=== PATIENT | male | born 1960 | race Hispanic/Latino ===

== ENCOUNTER 2019-10-15 13:40 | Emergency (ER) | payer BC, OTHER ==
[~2019-10-15] VITALS: Ht 170.2 cm; Wt 89.8 kg
[~2019-10-15 13:40] MED LIST: CILOSTAZOL100 MG PO; LANTUS 3ML100 UNITS/ SQ; VALACYCLOVIR500 MG PO
[2019-10-15 14:36] LABS: INFLUENZAE A&B ANTIGEN (RAPID) NEGATIVE (NEGATIVE)
[2019-10-15 14:41] LABS: STREPTOCOCCUS GRP A ANTIGEN NEGATIVE (NEGATIVE)
[2019-10-15 16:07] VITALS: BP 140/97
== END 2019-10-15 15:02 | disposition home or self-care (01) ==
LOC: ER 13:40
DX: R05 Cough (principal); J02.9 Acute pharyngitis, unspecified; S13.4XXA Sprain of ligaments of cervical spine, initial encounter; I10 Essential (primary) hypertension; E11.9 Type 2 diabetes mellitus without complications; E78.5 Hyperlipidemia, unspecified; Z86.73 Personal history of transient ischemic attack (TIA), and cerebral infarction without residual deficits
CPT/HCPCS: 83518; 87070; 87400; 93005; 99283

== ENCOUNTER 2020-05-03 13:09 | Inpatient (IN) | payer BC, OTHER ==
[~2020-05-03] VITALS: Ht 170.2 cm; Wt 85.8 kg
[2020-05-03] MEDS ORDERED: MORPHINE SULFATE 2 MG/ML SYR 1ML IV STA (13:43)
[2020-05-03] MEDS ORDERED: SODIUM CHLORIDE 0.9% 1000ML 1,000 ML IV STA (13:43)
[2020-05-03] MEDS ORDERED: ONDANSETRON HCL INJ 2MG/ML 2ML 2 MG/ML VIAL IV STA (13:43)
[2020-05-03] MEDS ORDERED: VANCOMYCIN 1GM/NS 250 ML 250 ML IV ONE (13:45)
--- OUTSIDE RECORDS SUMMARY | 2020-05-03 13:50 | XMS REPORT | Continuity of Care Document ---
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 Name Role Phone NONSTAFF PCP Unavailable Ben Barriga DO Attphys Bi SCHULERNStacey Attphys Unavailable Arnulfo Mackey RN Attphys Unavailable Payers Payer Name Policy Type Policy Number Effective Date Expiration Date S hoang [facility] CHO[facility]/CHOICE +/08/2019-PresentHMO/ PPO xxxxxxxxx 2019 00:00:00 Abraham Eduardo [facility] P[facility] [id number] 2006 00:00:00 [facility] Problems Condition Name Condition Details Condition Category Status Onset Date Resolution Date Last Treatment Date Treating Clinician Comments Source Chest pain Chest pain Disease Active 2020-01-11 00:00:00 Abraham Eduardo Essential hypertension Essential hypertension Disease Active 2020-01-11 00:00:[address] Acute pain of left shoulder Acute pain of left shoulder Disease Active 2020-01-11 00:00:00 Abraham Eduardo 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 Disease Active 2020-01-11 00:00:00 Abraham Eduardo Nocturnal leg cramps Nocturnal leg cramps Disease Active 00:00:00 Abraham Eduardo Myositis of lower extremity Myositis of lower extremity Disease Active 2019-03-19 00:00:00 Abraham Eduardo Neck pain, acute Neck pain, acute Disease Active 2018-09-08 00:00:00 Abraham Eduardo Acute nonintractable headache Acute nonintractable headache Disease Active 2018-09-08 00:00:00 Abraham Eduardo Other specified abdominal hernia without obstruction o r gangrene Other specified abdominal hernia without obstruction or gangrene Disease Active 2017-06-11 00:00:00 Abraham celeste Gait disturbance Gait disturbance Disease Active 2017-02-25 00:00:00 Abraham Eduardo Cerebrovascular accident (CVA) due to embolism of cere bral artery Cerebrovascular accident (CVA) due to embolism of cerebral artery Disease Active 2017-02-25 00:00:00 [place] [employer] Right lower quadrant abdominal tenderness without rebo und tenderness Right lower quadrant abdominal tenderness without rebound tenderness Disease Act will 2016-09-28 00:00:00 Abraham Eduardo Nutritional counseling Nutritional counseling Disease Active 2016-09-12 00:00:00 Abraham celeste Type 2 diabetes mellitus with hyperglyce adalgisa, without long-term current use of insulin Type 2 diabetes mellitus with hyperglyce adalgisa, without long-term current use of insulin Disease Active 2016-09-06 00:00:00 Abraham Eduardo Right lower quadrant abdominal pain Right lower quadrant abdomin al pain Disease Active 2016-09-03 00:00:00 [place] [employer] Melena Melena Disease Active 2016-09-03 00:00:00 Abraham Eduardo Alcohol abuse Alcohol abuse Disease Active 2016-09-03 00:00:00 Abraham Eduardo Abdominal pain Abdominal pain Problem Active [facility] Cerebrovascular accident (CVA) CVA (cerebral vascular accident) Pro blem Active [facility] Steatosis of liver Fatty liver Problem Active [facility] Microscopic hematuria Microscopic hematuria Problem Active [facility] Allergies, Adverse Reactions, Alerts Allergy Name Allergy Type Status Severity Reaction(s) Onset Date Inacti ve Date Treating Clinician Comments Source Penicillin Allergy to Substance Active 2016-11-11 00:00:00 [facility] Penicillins Propensity to adverse reactions to drug Active Anaphylaxis 2016-09-02 00:00:00 Abraham cardona Family History Family Member Diagnosis Comments Start Date Stop Date Source Natural father Diabetes Rosario [facility]odist Natural father Heart disease Abraham Eduardo Natural father Hyperlipidemia [place] [employer] Natural father Hypertension Abraham Eduardo Maternal grandfather Diabetes [place] [employer] Maternal grandfather Heart disease [place] [employer] Maternal grandfather Stroke [place] [employer] Maternal grandmother Diabetes [place] [employer] Paternal grandmother Heart disease [place] [employer] Social History Social Habit Start Date Stop Date Quantity Comments Source Sex Assigned At Jose Roberto ortiz [employer] Alcohol intake 2020-01-11 00:00:00 2020-01-11 00:00:00 Current drinker of alcohol (finding) Abraham Eduardo History SDOH Physical Activity DPW 2020-01-11 00:00:00 2020-01-11 00: 00:00 0 Abraham Eduardo History SDOH Physical Activity MPS 2020-01-11 00:00:00 2020-01-11 00: 00:00 0 Abraham Eduardo History SDOH Stress 2020-01-11 00:00:00 2020-01-11 00:00:00 1 Abraham Eduardo Alcohol Comment 2016-09-02 00:00:00 2016-09-02 00:00:00 6pack of beer daily Abraham Eduardo Smoking Status Start Date Stop Date Source Never smoker Abraham Healy t Medications Ordered Medication Name Filled Medication Name Start Date Stop Da te Current Medication? Ordering Clinician Indication Dosage Frequency Signature (SIG) Comments Components Source pen needle, diabetic (BD Ultra-Fine Short Pen Needle) 31 gau ge x 5/16" needle 2020-01-07 00:00:00 Yes 1{each} QD 1 each daily. Dx. : E11.8 Abraham Eduardo insulin degludec (Tresiba FlexTouch U-200) 200 unit/mL (3 mL ) insulin pen 2020-01-04 00:00:00 2020-02-03 23:59:00 No 20U QD Inject 20 Units under the skin nightly for 30 days. Abraham Santiago ist flash glucose scanning reader (FreeStyle Benito 14 Day [place] ) misc 2020-01-04 00:00:00 2020-01-18 23:59:00 No 1{device} 1 Device continuously for 14 days. Abraham Eduardo flash glucose sensor (FreeStyle Benito 14 Day Sensor) kit 2020-01-04 00:00:00 2020-01-18 23:59:00 No 1{device} 1 Device continuou sly for 14 days. Abraham Eduardo metFORMIN (GLUCOPHAGE) 500 mg tablet 2019-12-30 00:00:00 Ye s 500mg Q.5D Take 1 tablet (500 mg total) by mouth 2 (two) times a day with meals. Abraham Eduardo clopidogreL (PLAVIX) 75 mg tablet 2019-12-30 00:00:00 Yes 75mg QD Take 1 tablet (75 mg total) by mouth daily. Jose Roberto Eduardo gabapentin (NEURONTIN) 300 mg capsule 2019-12-30 00:00:00 Yes 600mg Q.[id number] Take 2 capsules (600 mg total) by mouth 3 (three) times a day. Abraham Eduardo losartan (COZAAR) 50 MG tablet 2019-12-30 00:00:00 Yes 50mg QD Take 1 tablet (50 mg total) by mouth daily. Jose Roberto Eduardo sertraline (ZOLOFT) 50 MG tablet 2019-12-30 00:00:00 Yes 50mg QD Take 1 tablet (50 mg total) by mouth daily. Jose Roberto Eduardo simvastatin (ZOCOR) 40 MG tablet 2019-12-30 00:00:00 Yes 40mg QD Take 1 tablet (40 mg total) by mouth nightly. H ramone Eduardo traZODone (DESYREL) 50 MG tablet 2019-12-30 00:00:00 Yes 50mg QD Take 1 tablet (50 mg total) by mouth nightly. H ramone Eduardo traZODone (DESYREL) 50 MG tablet 2019-11-30 00:00:00 2019-12 00:00:00 No TAKE 1 TABLET BY MOUTH NIGHTLY Abraham Eduardo gabapentin (NEURONTIN) 300 mg capsule 2019-11-24 00:00:00 Y es TAKE 2 CAPSULES(600 MG) BY MOUTH THREE TIMES DAILY Abraham Eduardo gabapentin (NEURONTIN) 300 mg capsule 2019-11-24 00:00:00 Yes TID Abraham Eduardo gabapentin (NEURONTIN) 300 mg capsule 2019-11-24 00:00 :00 2019-12-30 00:00:00 No TAKE 2 CAPSULES(600 MG) BY MOUTH THREE T IMES DAILY Abraham Eduardo gabapentin (NEURONTIN) 300 mg capsule 2019-10-22 00:00 :00 2019-11-24 00:00:00 No TAKE 2 CAPSULES(600 MG) BY MOUTH THREE T IMES DAILY Abraham Eduardo losartan (COZAAR) 50 MG tablet 2019-09-22 00:00:00 2019-12-30 00 :00:00 No TAKE 1 TABLET BY MOUTH ONCE DAILY Abraham Eduardo simvastatin (ZOCOR) 40 MG tablet 2019-09-22 00:00:00 2019-12 00:00:00 No TAKE 1 TABLET(40 MG) BY MOUTH EVERY NIGHT Abraham Eduardo sertraline (ZOLOFT) 50 MG tablet 2019-09-22 00:00:00 2019-12 00:00:00 No TAKE 1 TABLET(50 MG) BY MOUTH DAILY Abraham Eduardo clopidogreL (PLAVIX) 75 mg tablet 2019-09-22 00:00:00 2019 00:00:00 No TAKE 1 TABLET(75 MG) BY MOUTH DAILY Abraham Eduardo gabapentin (NEURONTIN) 300 mg capsule 2019-09-22 00:00 :00 2019-10-22 00:00:00 No TAKE 2 CAPSULES(600 MG) BY MOUTH THREE T IMES DAILY Abraham Eduardo gabapentin (NEURONTIN) 300 mg capsule 2019-08-24 00:00 :00 2019-09-22 00:00:00 No TAKE 2 CAPSULES(600 MG) BY MOUTH THREE T IMES DAILY Abraham Eduardo traZODone (DESYREL) 50 MG tablet 2019-08-04 00:00:00 2019-11 00:00:00 No TAKE 1 TABLET BY MOUTH NIGHTLY Abraham Eduardo gabapentin (NEURONTIN) 300 mg capsule 2019-07-31 00:00 :00 2019-08-24 00:00:00 No TAKE 2 CAPSULES(600 MG) BY MOUTH THREE T IMES DAILY Abraham Eduardo gabapentin (NEURONTIN) 300 mg capsule 2019-07-01 00:00 :00 2019-07-30 00:00:00 No TAKE 2 CAPSULES(600 MG) BY MOUTH THREE T IMES DAILY Abraham Eduardo traZODone (DESYREL) 50 MG tablet 2019-06-29 00:00:00 2019-07 00:00:00 No TAKE 1 TABLET BY MOUTH NIGHTLY Abraham Eduardo gabapentin (NEURONTIN) 300 mg capsule 2019-06-01 00:00 :00 2019-07-01 00:00:00 No TAKE 2 CAPSULES(600 MG) BY MOUTH THREE T IMES DAILY Abraham Eduardo gabapentin (NEURONTIN) 300 mg capsule 2019-04-29 00:00 :00 2019-05-31 00:00:00 No TAKE 2 CAPSULES(600 MG) BY MOUTH THREE T IMES DAILY Abraham Eduardo gabapentin (NEURONTIN) 300 mg capsule 2019-03-19 00:00 :00 2019-11-24 00:00:00 No TID Abraham Healy t losartan (COZAAR) 50 MG tablet 2019-03-19 00:00:00 2019-09-22 00 :00:00 No 50mg QD Take 1 tablet (50 mg total) by mouth daily. Abraham Eduardo sertraline (ZOLOFT) 50 MG tablet 2019-03-19 00:00:00 2019-08 00:00:00 No TAKE 1 TABLET(50 MG) BY MOUTH DAILY Abraham Eduardo clopidogrel (PLAVIX) 75 mg tablet 2019-03-19 00:00:00 2019 00:00:00 No TAKE 1 TABLET(75 MG) BY MOUTH DAILY Abraham Eduardo simvastatin (ZOCOR) 40 MG tablet 2019-03-19 00:00:00 2019-08 00:00:00 No 40mg QD Take 1 tablet (40 mg total) by mouth nightly. Abraham Eduardo traZODone (DESYREL) 50 MG tablet 2019-01-02 00:00:00 2019-06 00:00:00 No TAKE 1 TABLET BY MOUTH NIGHTLY Abraham Eduardo tiZANidine (ZANAFLEX) 4 MG tablet 2018-09-08 00:00:00 Yes TAKE 1 TABLET(4 MG) BY MOUTH EVERY 8 HOURS NEEDED FOR MUSCLE SPASMS Abraham Eduardo naproxen (EC-NAPROSYN) 500 MG EC tablet 00:00:00 2019-09-08 23:59:00 No 500mg Q.5D Take 1 tablet (500 mg total) by mouth 2 (two) times a day with meals. Abraham Eduardo canagliflozin (INVOKANA) 100 mg tablet tablet 2018-05-22 00:00:0 0 Yes 100mg QD Take 1 tablet (100 mg total) by mouth daily. Abraham Eduardo senna (SENOKOT) 8.6 mg tablet 2018-05-16 00:00:00 2019-05-16 23: 59:00 No 1{tbl} QD Take 1 tablet by mouth daily. Abraham Eduardo metFORMIN (GLUCOPHAGE) 500 mg tablet 2017-05-30 00:00: 00 2019-12-30 00:00:00 No 500mg Q.5D Take 1 tablet ( 500 mg total) by mouth 2 (two) times a day with meals. Abraham Eduardo lancets (ACCU-CHEK MULTICLIX LANCET) [facility] 2016-09-27 00:00:0 0 Yes Type 2 diabetes mellitus with hyperglycemia, without long-term current use of insulin ([facility]) Test daily before all meals/snacks and once bef ore bedtime. Abraham Eduardo ACCU-CHEK COMPACT TEST strip 2016-09-12 00:00:00 Y es Type 2 diabetes mellitus with hyperglycemia, without long-term current use of insulin ([facility]) Test daily before all meals/snacks and once before bedtime. Abraham Eduardo Insulin Glargine (Lantus 3ML Pen) 100 Units/1 Ml Inj I nsulin Glargine (Lantus 3ML Pen) 100 Units/1 Ml Inj Yes 30 Daily [facility] Cilostazol 100 Mg Tablet, 100 Mg Oral Cilostazol 100 Mg Tablet, 100 Mg Oral 2017-02-11 00:00:00 No 100 Twice A Day [facility] Valacyclovir Hcl (Valacyclovir) 500 Mg Tablet, 1000 Mg Oral Valacyclovir Hcl (Valacyclovir) 500 Mg Tablet, 1000 Mg Oral 2016-11-11 00:00:00 No 1000 Three Times A Day [facility] Vital Signs Vital Name Observation Time Observation Value Comments Source Systolic blood pressure 2020-01-11 11:31:00 160 mm[Hg] Abraham Eduardo Diastolic blood pressure 2020-01-11 11:31:00 85 mm[Hg] Abraham Eduardo Heart rate 2020-01-11 11:31:00 91 /min Abraham Eduardo Body temperature 2020-01-11 11:31:00 36.72 [place]ri[place] [employer] Body height 2020-01-11 11:31:00 170.2 cm Abraham Eduardo Body weight 2020-01-11 11:31:00 87.998 kg Abraham Eduardo BMI 2020-01-11 11:31:00 30.38 kg/m2 Abraham Eduardo Oxygen saturation in Arterial blood by Pulse oximetry 01-10 11:31:00 94 /min Abraham Eduardo Procedures Procedure Date / Time Performed Performing Clinician [facility] HEMOGLOBIN A1C 2019-12-30 15:32:00 Marcia Barriga CBC WITH PLATELET AND DIFFERENTIAL 2019-12-30 15:32:00 Marcia Vaca COMPREHENSIVE METABOLIC PANEL 2019-12-30 15:32:00 Marcia Barriga LIPID PANEL 2019-12-30 15:32:00 Marcia Barriga TESTOSTERONE 2019-12-30 15:32:00 Marcia Barriga Plan of Care Planned Activity Planned Date Details Comments Source Future Scheduled Test 2020-12-29 00:00:00 DIABETIC FOOT EXAM [code = DIABETIC FOOT EXAM] Abraham Eduardo Future Scheduled Test 2020-05-26 00:00:00 INFLUENZA VACCINE [code = INFLUENZA VACCINE] Abraham Eduardo Future Scheduled Test 2019-05-16 00:00:00 URINE MICROALBUMIN [code = URINE MICROALBUMIN] [facility] Future Scheduled Test 2008 00:00:00 COLONOSCOPY SCREEN ING [code = COLONOSCOPY SCREENING] [facility] Future Scheduled Test 2008 00:00:00 SHINGLES VACCINES (#1) [code = SHINGLES VACCINES (#1)] [facility] Future Scheduled Test 1958 00:00:00 DIABETIC RETINAL E YE EXAM [code = DIABETIC RETINAL EYE EXAM] Abraham Eduardo Encounters Start Date/Time End Date/Time Encounter Type Admission Type [facility] Care Department Encounter ID Source 2020-01-11 00:00:00 2020-01-11 00:00:00 Outpatient Nicolás BARRIGA [facility] [id number] Abraham Eduardo 2020-01-04 00:00:00 2020-01-04 00:00:00 Outpatient Nicolás BARRIGA [facility] [id number] Abraham Eduardo 2019-12-30 00:00:00 2019-12-30 00:00:00 Outpatient Nicolás BARRIGA [facility] [id number] Abraham Eduardo 2019-10-15 13:40:00 2019-10-15 15:02:00 Departed Emergency Room [facility] [id number] [facility] Results Test Description Test Time Test Comments Results Result Comments Source Comprehensive metabolic panel 2020-01-01 21:39:00 Test Item Glucose (test code = 2345-7) 463 mg/dL 65-139 H Non-fasting reference interval BUN (test code = 3094-0) 16 mg/dL 7-25 Creatinine (test code = 2160-0) 0.68 mg/dL 0.7-1.25 L For patients >49 years of age, the reference limitfor Creatinine is approximately 13% higher for peopleidentified as -[place]. EGFR Non-Afr. [place]an (test code = 2775) 103 > OR = 60 mL /min/1.73m2 EGFR (test code = 46372-4) 119 > OR = 60 mL/min/1.73m2 BUN/creatinine ratio (test code = 3097-3) 24 6- 22 (calc) H Sodium (test code = 2951-2) 134 mmol/L 135-146 L Potassium (test code = 2823-3) 4.5 mmol/L 3.5-5.3 Chloride (test code = 5-0) 98 mmol/L 98-110 CO2 (test code = 2027-9) 29 mmol/L 20-32 Calcium (test code = 47999-5) 9.3 mg/dL 8.6-10.3 Protein (test code = 2885-2) 6.6 g/dL 6.1-8.1 Albumin, S (test code = 1751-7) 3.8 g/dL 3.6-5.1 Globulin, total (test code = 81527-5) 2.8 1.9- 3.7 g/dL (c alc) Albumin/globulin ratio (test code = 1759-0) 1.4 1.0- 2.5 ( calc) Total bilirubin (test code = 1974-2) 0.7 mg/dL 0.2-1.2 Alkaline phosphatase (test code = 6768-6) 79 U/L 35-144 AST (test code = 1920-8) 12 U/L 10-35 ALT (test code = 1742-6) 12 U/L 9-46 MARK (test code = MARK) FASTING:NOPATIENT UNABLE TO VOID; ADVISED TO RETURN FOR COLLECTION.FASTING: NO RAC (test code = RAC) Performing Organization Info rmation: Site ID: RGA Name: [facility] Address: [address] [place] [id number] Director: Juan Worthy Lab Interpretation (test code = 42472-4) Abnormal [place] [facility] [id number] 21:39:00* Test Item Value Reference Range Interpretation Comments Cholesterol, total (test code = 2093-3) 222 mg/dL <200 H HDL cholesterol (test code = 2085-9) 48 mg/dL > OR = 40 Triglycerides (test code = 2571-8) 754 mg/dL <150 H If a non-fasting specimen was collected, considerrepeat triglyceride testing on a fasting specimenif clinically indicated. Ana et al. J. of Clin. Lipidol. 2015;9:129-169. There is increased risk of pancreatitis when the triglyceride concentration is very high (> or = 500 mg/dL, especially if > or = 1000 mg/dL). Ana et al. J. of Clin. Lipidol. 2015;9:129-169. LDL cholesterol calculated (test code = 42950-1) mg/dL (calc) LDL cholesterol not calculated. Triglyceride levelsgreater than 400 mg/dL invalidate calculated LDL results. Reference range: <100 Desirable range <100 mg/dL for primary prevention; <70 mg/dL for patients with CHD or diabetic patients with > or = 2 CHD risk factors. LDL-C is now calculated using the Suhail-Shantal calculation, which is a validated novel method providing better accuracy than the Friedewald equation in the estimation of LDL-C. Suhail SS et al. GABE. 2013;310(19): 1226-5767 (http://education.OfficeDrop.Galavantier/faq/WVS396) Cholesterol/HDL ratio (test code = 9830-1) 4.6 <5.0 (calc) Non-HDL cholesterol (test code = 76016-6) 174 <130 mg/dL ( calc) H For patients with diabetes plus 1 major ASCVD risk factor, treating to a non-HDL-C goal of <100 mg/dL (LDL-C of <70 mg/dL) is considered a therapeutic option. MARK (test code = MARK) FASTING:NOPATIENT UNABLE TO VOID; ADVISED TO RETURN FOR COLLECTION.FASTING: NO RAC (test code = RAC) Performing Organization Info rmation: Site ID: RGA Name: [facility] Address: [address] [place], [place] [id number] Director: Juan Worthy Lab Interpretation (test code = 15085-7) Abnormal [place] [facility] [id number] 21:39:00* Test Item Value Reference Range Interpretation Comments Hemoglobin A1C (test code = 4548-4) 13.1 <5.7 % of total Hg b H For someone without known diabetes, a hemoglobin Y7ecsawd of 6.5% or greater indicates that they may have diabetes and this should be confirmed with a follow-up test. For someone with known diabetes, a value <7% indicates that their diabetes is well controlled and a value greater than or equal to 7% indicates suboptimal control. A1c targets should be individualized based on duration of diabetes, age, comorbid conditions, and other considerations. Currently, no consensus exists regarding use ofhemoglobin A1c for diagnosis of diabetes for children. MARK (test code = MARK) FASTING:NOPATIENT UNABLE TO VOID; ADVISED TO RETURN FOR COLLECTION.FASTING: NO RAC (test code = RAC) Performing Organization Info rmation: Site ID: [id number] Name: [facility] Address: [address] [place] [address] Director: Juan Worthy Lab Interpretation (test code = 54097-4) Abnormal [place] [id number] 21:39:00* Test Item Value Reference Range Interpretation Comments Testosterone, total, lc/ms/ms (test code = 2986-8) 327 ng/dL 250 -1100 Men with clinically significant hypogonadal symptoms and testosterone values repeatedly in the range(Note)For additional information, please refer tohttp://education.Categorical.Galavantier/faq/TotalTestosteroneLCMSMS(This link is being provided for informational/educational purposesonly.)This test was developed and its analytical performancecharacteristics have been determined by [employer]. It has notbeen cleared or approved by the FDA. This assay has been validatedpursuant to the CLIA regulations and is used for clinical purposes. [facility] [id number] [address],[address] [place] [address] [id number] R Middleman, MD MARK (test code = MARK) FASTING:NOPATIENT UNABLE TO VOID; ADVISED TO RETURN FOR COLLECTION.FASTING: NO RAC (test code = RAC) Performing Organization Info rmation: Site ID: [id number] Name: [facility] Address: [address] [place] [address], [address] [place] [address] Director: Gab Tesfaye MD [facility] with platelet and [id number] 21:39:00* Test Item Value Reference Range Interpretation Comments WBC (test code = 6690-2) 7.0 3.8- 10.8 Thousand/uL RBC (test code = 789-8) 4.96 4.20- 5.80 Million/uL HGB (test code = 718-7) 15.2 g/dL 13.2-17.1 HCT (test code = 4544-3) 46.6 % 38.5-50 MCV (test code = 787-2) 94.0 fL 80-100 MCH (test code = 785-6) 30.6 pg 27-33 MCHC (test code = 786-4) 32.6 g/dL 32-36 RDW (test code = 788-0) 12.3 % 11-15 Platelet count (test code = 777-3) 250 140- 400 Thousand/u L MPV (test code = 776-5) 10.5 fL 7.5-12.5 Neutrophils, absolute (test code = 751-8) 4403 1,500 - 7,80 0 cells/uL Lymphocytes, absolute (test code = 731-0) 2114 850- 3,900 c ells/uL Monocytes, absolute (test code = 742-7) 392 200- 950 cells /uL Eosinophils, absolute (test code = 711-2) 70 15- 500 cell s/uL Basophils, absolute (test code = 704-7) 21 0- 200 cells/u L Neutrophils (test code = 770-8) 62.9 % Lymphocytes (test code = 736-9) 30.2 % Monocytes (test code = 5905-5) 5.6 % Eosinophils (test code = 713-8) 1.0 % Basophils + RC (test code = 706-2) 0.3 % MARK (test code = MARK) FASTING:NOPATIENT UNABLE TO VOID; ADVISED TO RETURN FOR COLLECTION.FASTING: NO RAC (test code = RAC) Performing Organization Info rmation: Site ID: RGA Name: [facility] Address: [address] [place] [phone] Director: Juan Rosario [facility] Streptococcus [id number] 14:41:00* Test Item Value Reference Range Interpretation Comments Group A Streptococcus Screen (test code = 73985-9) NEGATIVE NEG [facility]IVE [facility]igen 2019-10-15 14:37:00* Test Item Value Reference Range Interpretation Comments Influenza Virus Types A,B Antigen (test code = 24093-8) NEGATIVE NEGATIVE [facility]
--- OUTSIDE RECORDS SUMMARY | 2020-05-03 13:50 | XMS REPORT | Clinical Summary ---
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 Active lancets (ACCU-CHEK Test daily 3 each 0 09/27/2 01 MULTICLIX LANCET) before all 7 miscIndications: Type 2 meals/snacks diabetes mellitus with and once hyperglycemia, without before long-term current use of bedtime. insulin (HCC) Active canagliflozin (INVOKANA) Take 1 tablet 90 tablet 1 100 mg tablet tablet (100 mg 8 total) by mouth daily. Active tiZANidine (ZANAFLEX) 4 TAKE 1 270 tablet 0 MG tablet TABLET(4 MG) 9 BY MOUTH EVERY 8 HOURS NEEDED FOR MUSCLE SPASMS Active gabapentin (NEURONTIN) TAKE 2 180 capsule 0 300 mg capsule CAPSULES(600 0 MG) BY MOUTH THREE TIMES DAILY Active gabapentin (NEURONTIN) TID 180 capsule 1 300 mg capsule 0 Active metFORMIN (GLUCOPHAGE) Take 1 tablet 60 tablet 5 0 500 mg tablet (500 mg 0 total) by mouth 2 (two) times a day with meals. Active clopidogreL (PLAVIX) 75 Take 1 tablet 90 tablet 1 mg tablet (75 mg total) 0 by mouth daily. Active gabapentin (NEURONTIN) Take 2 180 capsule 5 300 mg capsule capsules (600 0 mg total) by mouth 3 (three) times a day. Active losartan (COZAAR) 50 MG Take 1 tablet 90 tablet 1 tablet (50 mg total) 0 by mouth daily. Active sertraline (ZOLOFT) 50 MG Take 1 tablet 90 tablet 1 tablet (50 mg total) 0 by mouth daily. Active simvastatin (ZOCOR) 40 MG Take 1 tablet 90 tablet 1 tablet (40 mg total) 0 by mouth nightly. Active traZODone (DESYREL) 50 MG Take 1 tablet 30 tablet 5 tablet (50 mg total) 0 by mouth nightly. Active pen needle, diabetic (BD 1 each daily. 30 each 5 Ultra-Fine Short Pen Dx. : E11.8 0 Needle) 31 gauge x 16" needle 12/30/2019 Discontinued (Reorder) metFORMIN (GLUCOPHAGE) Take 1 tablet 60 tablet 5 1 500 mg tablet (500 mg 7 total) by mouth 2 (two) times a day with meals. 05/16/2019 senna (SENOKOT) 8.6 mg Take 1 tablet 30 tablet 11 0 tablet by mouth 8 daily. 09/08/2019 naproxen (EC-NAPROSYN) Take 1 tablet 60 tablet 11 0 500 MG EC tablet (500 mg 9 total) by mouth 2 (two) times a day with meals. 06/27/2019 Discontinued (Reorder) traZODone (DESYREL) 50 MG TAKE 1 TABLET 30 tablet 0 tablet BY MOUTH 9 NIGHTLY 09/22/2019 Discontinued losartan (COZAAR) 50 MG Take 1 tablet 90 tablet 1 tablet (50 mg total) 9 by mouth daily. 09/22/2019 Discontinued sertraline (ZOLOFT) 50 MG TAKE 1 90 tablet 1 tablet TABLET(50 MG) 9 BY MOUTH DAILY 09/22/2019 Discontinued clopidogrel (PLAVIX) 75 TAKE 1 90 tablet 1 mg tablet TABLET(75 MG) 9 BY MOUTH DAILY 11/24/2019 Discontinued (Reorder) gabapentin (NEURONTIN) TID 180 capsule 1 300 mg capsule 9 09/22/2019 Discontinued simvastatin (ZOCOR) 40 MG Take 1 tablet 90 tablet 1 tablet (40 mg total) 9 by mouth nightly. 05/31/2019 Discontinued (Reorder) gabapentin (NEURONTIN) TAKE 2 180 capsule 0 300 mg capsule CAPSULES(600 9 MG) BY MOUTH THREE TIMES DAILY 07/01/2019 Discontinued (Reorder) gabapentin (NEURONTIN) TAKE 2 180 capsule 0 300 mg capsule CAPSULES(600 9 MG) BY MOUTH THREE TIMES DAILY 08/04/2019 Discontinued (Reorder) traZODone (DESYREL) 50 MG TAKE 1 TABLET 30 tablet 0 tablet BY MOUTH 9 NIGHTLY 07/30/2019 Discontinued (Reorder) gabapentin (NEURONTIN) TAKE 2 180 capsule 0 300 mg capsule CAPSULES(600 9 MG) BY MOUTH THREE TIMES DAILY 08/24/2019 Discontinued gabapentin (NEURONTIN) TAKE 2 180 capsule 0 300 mg capsule CAPSULES(600 9 MG) BY MOUTH THREE TIMES DAILY 11/30/2019 Discontinued traZODone (DESYREL) 50 MG TAKE 1 TABLET 30 tablet 0 tablet BY MOUTH 9 NIGHTLY 09/22/2019 Discontinued gabapentin (NEURONTIN) TAKE 2 180 capsule 0 300 mg capsule CAPSULES(600 9 MG) BY MOUTH THREE TIMES DAILY 12/30/2019 Discontinued (Reorder) losartan (COZAAR) 50 MG TAKE 1 TABLET 90 tablet 1 tablet BY MOUTH ONCE 0 DAILY 10/22/2019 Discontinued gabapentin (NEURONTIN) TAKE 2 180 capsule 0 300 mg capsule CAPSULES(600 0 MG) BY MOUTH THREE TIMES DAILY 12/30/2019 Discontinued (Reorder) simvastatin (ZOCOR) 40 MG TAKE 1 90 tablet 1 tablet TABLET(40 MG) 0 BY MOUTH EVERY NIGHT 12/30/2019 Discontinued (Reorder) sertraline (ZOLOFT) 50 MG TAKE 1 90 tablet 1 tablet TABLET(50 MG) 0 BY MOUTH DAILY 12/30/2019 Discontinued (Reorder) clopidogreL (PLAVIX) 75 TAKE 1 90 tablet 1 mg tablet TABLET(75 MG) 0 BY MOUTH DAILY 11/24/2019 Discontinued gabapentin (NEURONTIN) TAKE 2 180 capsule 0 300 mg capsule CAPSULES(600 0 MG) BY MOUTH THREE TIMES DAILY 12/30/2019 Discontinued (Reorder) gabapentin (NEURONTIN) TAKE 2 180 capsule 0 300 mg capsule CAPSULES(600 0 MG) BY MOUTH THREE TIMES DAILY 12/30/2019 Discontinued (Reorder) traZODone (DESYREL) 50 MG TAKE 1 TABLET 30 tablet 0 tablet BY MOUTH 0 NIGHTLY 01/18/2020 flash glucose scanning 1 Device 1 each 1 reader (FreeStyle [place] continuously 0 14 Day [place]) misc for 14 days. 01/18/2020 flash glucose sensor 1 Device 1 kit 5 01/03 (FreeStyle [place] 14 Day continuously 0 Sensor) kit for 14 days. 02/03/2020 insulin degludec (Tresiba Inject 20 5 Syringe 2 FlexTouch U-200) 200 Units under 0 unit/mL (3 mL) insulin the skin pen nightly for 30 days. 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 Nocturnal leg cramps 03/19/2019 Myositis of lower extremity 03/19/2019 Neck pain, acute 09/08/2018 Acute nonintractable headache 09/08/2018 Other specified abdominal hernia without obstruction or gangrene 06/11/2017 Gait disturbance 02/25/2017 Cerebrovascular accident (CVA) due to embolism of cer ebral artery 02/25/2017 Right lower quadrant abdominal tenderness without rigoberto ound tenderness 09/28/2016 Nutritional counseling 09/12/2016 Type 2 diabetes mellitus with hyperglycemia, without long-term current use 09/06/2016 of insulin Right lower quadrant abdominal pain 09/03/2016 Melena 09/03/2016 Alcohol abuse 09/03/2016 Encounters Care Team Description Date Type Specialty Marcia Barriga DO 01/15/2020 Orders Only Family Medicine Stacey Pat LVN 01/13/2020 Orders Only Family Medicine Marcia Barriga DO 01/12/2020 Orders Only Family Medicine Marcia Barriga DO Chest pain, unspecified type (Primary Dx ); Essential hypertension; Type 2 diabetes mellitus with hyperglycemia, without long-term current use of insulin (HCC); Nocturnal leg cramps; Acute pain of left shoulder; Coronary artery disease of [place] artery [place] heart with stable angina pectoris (HCC) 01/11/2020 Office Visit Family Medicine 01/11/2020 Travel Marcia Barriga, DO 01/07/2020 Orders Only Family Medicine Stacey Pat, PERSONAL CAREGIVER 01/07/2020 Telephone Family Medicine Marcia Barriga, Type 2 diabetes mellitus without complic ation, with long-term current use of insulin (HCC) (Primary Dx) 01/04/2020 Office Visit Family Medicine Stacey Pat, PERSONAL CAREGIVER 01/04/2020 Telephone Family Medicine 01/04/2020 Travel Marcia Barriga, Type 2 diabetes mellitus with hyperglyce [place], without long-term current use of insulin (HCC) (Primary Dx); Cerebrovascular accident (CVA) due to embolism of cerebral artery (HCC); Nutritional counseling; Fatigue, unspecified type 12/30/2019 Office Visit Family Medicine 12/30/2019 Travel 12/24/2019 Travel Stacey Pat, PERSONAL CAREGIVER 12/02/2019 Telephone Family Medicine Marcia Barriga, DO 11/29/2019 Refill Family Medicine 11/24/2019 Travel Marcia Barriga, DO 11/24/2019 Orders Only Family Medicine Marcia Barriga, DO 11/24/2019 Telephone Family Medicine Marcia Barriga, DO 11/22/2019 Refill Family Medicine Marcia Barriga, DO 11/21/2019 Refill Family Medicine Marcia Barriga, DO 10/22/2019 Refill Family Medicine Stacey Pat, PERSONAL CAREGIVER 10/16/2019 Telephone Family Medicine Belkys Mackey RN 10/13/2019 Nurse Triage Access Marcia Barriga, DO 09/22/2019 Refill Family Medicine Marcia Barriga, DO 08/23/2019 Refill Family Medicine Marcia Barriga, DO 08/04/2019 Refill Family Medicine Marcia Barriga, DO 07/30/2019 Refill Family Medicine Marcia Barriga, DO 07/01/2019 Refill Family Medicine Marcia Barriga, DO 06/27/2019 Refill Family Medicine Marcia Barriga, DO 05/31/2019 Refill Family Medicine after 05/03/2019 Family History Medical History Relation Name Comments Diabetes Father Heart disease Father Hyperlipidemia Father Hypertension Father Diabetes Maternal Grandfather Heart disease Maternal Grandfather Stroke Maternal Grandfather Diabetes Maternal Grandmother Heart disease Paternal Grandmother Relation Name Status Comments Father Maternal Grandfather Maternal Grandmother Paternal Grandmother Social History Date Tobacco Use Types Packs/Day Years Used Never Smoker Smokeless Tobacco: Never Used Drinks/Week oz/Week Comments Alcohol Use 3 Cans of beer 6pack of beer daily Yes Physical Activity Answer Date Recorded On average, how many days per week do you engage 0 days 01/11/2020 in moderate to strenuous exercise (like walking fast, running, jogging, dancing, swimmi ng, biking, or other activities that cause a light or heavy sweat)? On average, how many minutes do you engage in 0 min 01/11/2020 exercise at this level? Stress Answer Date Recorded Do you feel stress - tense, restless, nervous, or Not at a ll 01/11/2020 anxious, or unable to sleep at night be cause your mind is troubled all the time - these d ays? Sex Assigned at Date Recorded Not on file Industry Job Start Date Occupation Not on file Not on file Not on file Travel End Travel History Travel Start No recent travel history available. Last Filed Vital Signs Reading Time Taken Comments Vital Sign 160/85 01/11/2020 11:31 AM CDT Blood Pressure 91 01/11/2020 11:31 AM CDT Pulse 36.7 C (98.1 F) 01/11/2020 11:31 AM CDT Temperature - - Respiratory Rate 94% 01/11/2020 11:31 AM CDT Oxygen Saturation - - Inhaled Oxygen Concentration 88 kg (194 lb) 01/11/2020 11:31 AM CDT Weight 170.2 cm (5' 7") 01/11/2020 11:31 AM CDT Height 30.38 01/11/2020 11:31 AM CDT Body Mass Index Plan of Treatment Health Maintenance Due Date Last Done Comments DIABETIC RETINAL EYE EXAM 1960 COLONOSCOPY SCREENING 2008 SHINGLES VACCINES (#1) 2008 URINE MICROALBUMIN 05/16/2019 05/16/2018, 04/01/2017 INFLUENZA VACCINE 05/26/2020 DIABETIC FOOT EXAM 12/29/2020 12/30/2019, 12/30/2019, 05/16/2018, Additional history exists Procedures Comments Procedure Name Priority Date/Time Associated Diag nosis TESTOSTERONE Routine 12/30/2019 Fatigue, unspec ified type 3:32 PM CDT LIPID PANEL Routine 12/30/2019 Type 2 diabetes mellitus 3:32 PM CDT with hyperglycemia, without long-term current use of insulin (HCC) COMPREHENSIVE METABOLIC Routine 12/30/2019 Type 2 diabetes mellitus PANEL 3:32 PM CDT with hyperglycemia, without long-term current use of insulin (HCC) CBC WITH PLATELET AND Routine 12/30/2019 Fatigue, unspecified type DIFFERENTIAL 3:32 PM CDT HEMOGLOBIN A1C Routine 12/30/2019 Type 2 diabetes mellitus 3:32 PM CDT with hyperglycemia, without long-term current use of insulin ([facility]) after 05/03/2019 Results * CBC with platelet and differential (12/30/2019 3:32 PM CDT) [facility] WBC 7.0 3.8 - 10.8 [facility] Thousand/uL [facility] [place] RBC 4.96 4.20 - 5.80 [facility] Million/uL [facility] [place] HGB 15.2 13.2 - 17.1 g/dL [facility] [place] HCT 46.6 38.5 - 50.0 % [facility] [place] MCV 94.0 80.0 - 100.0 fL [facility] [place] MCH 30.6 27.0 - 33.0 pg [facility] [place] MCHC 32.6 32.0 - 36.0 g/dL [facility] [place] RDW 12.3 11.0 - 15.0 % [facility] [place] Platelet count 250 140 - 400 [facility] Thousand/uL [facility] [place] MPV 10.5 7.5 - 12.5 fL [facility] [place] Neutrophils, 4,403 1,500 - 7,800 [facility] absolute cells/uL [facility] [place] Lymphocytes, 2,114 850 - 3,900 cells/uL [facility] absolute [facility] [place] Monocytes, 392 200 - 950 cells/uL [facility] absolute [facility] [place] Eosinophils, 70 15 - 500 cells/uL [facility] absolute [facility] [place] Basophils, 21 0 - 200 cells/uL [facility] absolute [facility] [place] Neutrophils 62.9 % [facility] [place] Lymphocytes 30.2 % [facility] [place] Monocytes 5.6 % [facility] [place] Eosinophils 1.0 % [facility] [place] Basophils + RC 0.3 % [facility] [place] Specimen Blood Narrative Performed At FASTING:NO [facility] PATIENT UNABLE TO VOID; ADVISED TO RETU RN FOR COLLECTION. FASTING: NO Resulting Agency Comment Performing Organization Information: Site ID: [id number] Name: [facility] Address: [address] [place] [id number] Director: Juan Worthy Performing Organization Address City/State/[facility] Ph one Number [facility] [address] [phone] * Testosterone (12/30/2019 3:32 PM CDT) Pathologist [facility] Testosterone, 327 250 - 1,100 ng/dL [facility] total, lc/ms/ms Comment: Men with clinically significant hypogonadal symptoms and testosterone values repeatedly in the range (Note) For additional information, please refer to http://education.[employer].com/faq/TotalTestosteroneL CMSMS (This link is being provided for informational/educational purposes only.) This test was developed and its analytical performance characteristics have been determined by [employer]. It has not been cleared or approved by the FDA. This assay has been validated pursuant to the CLIA regulations and is used for clinical purposes. [facility] [address] [place] [address],[address] [place], [place] [id number] Gab Tesfaye MD Specimen Blood Narrative Performed At FASTING:NO [facility] PATIENT UNABLE TO VOID; ADVISED TO RETU RN FOR COLLECTION. FASTING: NO Resulting Agency Comment Performing Organization Information: Site ID: [id number] Name: [facility] Address: [address] [place] [address], [address] [place] [phone] Director: Gab Tesfaye MD Performing Organization Address City/State/[facility] Ph one Number [facility] * Hemoglobin A1c (12/30/2019 3:32 PM CDT) Pathologist [facility] Hemoglobin A1C 13.1 (H) <5.7 % of total Hgb [facility] Comment: DIAGNOST[facility] For someone without known [place] diabetes, a hemoglobin A1c value of 6.5% or greater indicates that they [...] considerations. Currently, no consensus exists regarding use of hemoglobin A1c for diagnosis of diabetes for children. Specimen Blood Narrative Performed At FASTING:NO [facility] PATIENT UNABLE TO VOID; ADVISED TO RETU RN FOR COLLECTION. FASTING: NO Resulting Agency Comment Performing Organization Information: Site ID: [id number] Name: [facility] Address: [address] [place] [phone] Director: Juan Worthy Performing Organization Address City/State/Zipcode Ph one Number [employer] [facility] [address] [phone] * Lipid panel (12/30/2019 3:32 PM CDT) Pathologist [facility] Cholesterol, 222 (H) <200 mg/dL [facility] total [facility] [place] HDL cholesterol 48 > OR = 40 mg/dL [facility] [place] Triglycerides 754 (H) <150 mg/dL [facility] Comment: DIAGNOSTICS If a non-fasting specimen was BERNABE collected, consider repeat triglyceride testing on a fasting specimen if clinically indicated. Perez et al. J. of Clin. Lipidol. 2015;9:129-169. There is increased risk of pancreatitis when the triglyceride concentration is very high (> or = 500 mg/dL, especially if > or = 1000 mg/dL). Perez et al. J. of Clin. Lipidol. 2015;9:129-169. LDL cholesterol Comment: mg/dL (calc) [facility] calculated LDL cholesterol not DIAGNOSTICS calculated. Triglyceride [place] levels greater than 400 mg/dL invalidate calculated LDL results. Reference range: <100 Desirable range <100 mg/dL for primary prevention; <70 mg/dL for patients with CHD or diabetic patients with > or = 2 CHD risk factors. LDL-C is now calculated using the Magalys calculation, which is a validated novel method providing better accuracy than the Friedewald equation in the estimation of LDL-C. Suhail SS et al. GABE. 2013;310(19): 5239-2864 (http://education.[employer].com/faq/KGN775) Cholesterol/HDL 4.6 <5.0 (calc) [facility] ratio [employer] [place] Non-HDL 174 (H) <130 mg/dL (calc) [facility] cholesterol Comment: DIAGNOSTICS For patients with diabetes [place] plus 1 major ASCVD risk factor, treating to a non-HDL-C goal of <100 mg/dL (LDL-C of <70 mg/dL) is considered a therapeutic option. Specimen Blood Narrative Performed At FASTING:NO [facility] PATIENT UNABLE TO VOID; ADVISED TO RETU RN FOR COLLECTION. FASTING: NO Resulting Agency Comment Performing Organization Information: Site ID: [id number] Name: [facility] Address: [address] [place] [phone] Director: Juan Wrothy Performing Organization Address City/State/Zipcode Ph one Number [employer] [address] [phone] * Comprehensive metabolic panel (12/30/2019 3:32 PM CDT) Glucose 463 (H) 65 - 139 mg/dL [facility] Comment: DIAGNOST[facility] Non-fasting [place] reference interval BUN 16 7 - 25 mg/dL [facility] Creatinine 0.68 (L) 0.70 - 1.25 mg/dL [facility] Comment: DIAGNOSTICS For patients >49 years of age, [place] the reference limit for Creatinine is approximately 13% higher for people identified as -Chinese. EGFR Non-Afr. 103 > OR = 60 [facility] mL/min/1.73m2 [facility] EGFR 119 > OR = 60 [facility] Chinese mL/min/1.73m2 [facility] BUN/creatinine 24 (H) 6 - 22 (calc) [facility] Sodium 134 (L) 135 - 146 mmol/L [facility] Potassium 4.5 3.5 - 5.3 mmol/L [facility] Chloride 98 98 - 110 mmol/L [facility] [employer] [place] CO2 29 20 - 32 mmol/L [facility] Calcium 9.3 8.6 - 10.3 mg/dL [facility] Protein 6.6 6.1 - 8.1 g/dL [facility] Albumin, S 3.8 3.6 - 5.1 g/dL [facility] [employer] [place] Globulin, total 2.8 1.9 - 3.7 g/dL [facility] (calc) [employer] [place] Albumin/globuli 1.4 1.0 - 2.5 (calc) [facility] n ratio [facility] [place] Total bilirubin 0.7 0.2 - 1.2 mg/dL [facility] [place] Alkaline 79 35 - 144 U/L [facility] phosphatase [facility] [place] AST 12 10 - 35 U/L [facility] [place] ALT 12 9 - 46 U/L [facility] [place] Specimen Blood Narrative Performed At FASTING:NO [facility] PATIENT UNABLE TO VOID; ADVISED TO RETU RN FOR COLLECTION. FASTING: NO Resulting Agency Comment Performing Organization Information: Site ID: [id number] Name: [facility] Address: [address] [place] [phone] Director: Juan Worthy Performing Organization Address City/State/Zipcode Ph one Number [facility] [employer] [place] [address] [place] [phone] after 05/03/2019 Insurance Type Payer Benefit Subscriber ID Effective Phone Address Plan / Dates Group HMO/PPO [facility] xxxxxxxxx 2019-P THCARE resent CHOICE/CHO ICE + Advance Directives For more information, please contact: [phone] Patient Mutuel Clerk Explanation Type Date Recorded Advance Directives, Living Will and Medical Power of Manager Merchandise
[2020-05-03] MEDS ORDERED: ONDANSETRON HCL INJ 2MG/ML 2ML 2 MG/ML VIAL IV PRN (14:30)
[2020-05-03] MEDS ORDERED: MORPHINE SULFATE 2 MG/ML SYR 1ML IV PRN (14:30)
--- NOTE | 2020-05-03 14:32 | Diagnostic Imaging Report ---
EXAMINATION: CHEST SINGLE (PORTABLE) INDICATION: Right breast mass COMPARISON: None FINDINGS: LINES/TUBES:None LUNGS:The lungs are well-inflated. No focal consolidation or pulmonary edema. PLEURA:No pleural effusion or pneumothorax. MEDIASTINUM:The cardiomediastinal silhouette appears normal in size and shape. BONES/SOFT TISSUES:No acute osseous injury. ABDOMEN:No free air under the diaphragm. IMPRESSION: No focal pneumonia or pulmonary edema. Signed by: Dee Dee Holly MD on 05/03/2020 2:28 PM
--- OUTSIDE RECORDS SUMMARY | 2020-05-03 14:36 | XMS REPORT | Clinical Summary ---
Author Author [facility] Organization [place] [facility] Address Unknown Phone Unavailable Care Team Providers Care Director Of Planning Name Role Phone Marcia Barriga DO PCP [...] reader (FreeStyle [place]ito continuously 0 14 Day [place]) misc for 14 days. 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) 01/11/2020 Office Visit Family Medicine 01/11/2020 Travel Marcia Barriga, DO 01/07/2020 Orders Only Family Medicine Stacey Pat, SECONDS HANDLER 01/07/2020 Telephone Family Medicine Marcia Barriga, Type 2 diabetes mellitus without complic ation, with long-term current use of insulin (HCC) (Primary Dx) 01/04/2020 Office Visit Family Medicine Stacey Pat, SECONDS HANDLER 01/04/2020 Telephone Family Medicine 01/04/2020 Travel Marcia Barriga, Type 2 diabetes mellitus with hyperglyce adalgisa, without long-term current use of insulin (HCC) (Primary Dx); Cerebrovascular accident (CVA) due to embolism of cerebral artery (HCC); Nutritional counseling; Fatigue, unspecified type 12/30/2019 Office Visit Family Medicine 12/30/2019 Travel 12/24/2019 Travel Stacey Pat, SECONDS HANDLER 12/02/2019 Telephone Family Medicine Marcia Barriga, DO 11/29/2019 Refill Family Medicine 11/24/2019 Travel Marcia Barriga, DO 11/24/2019 Orders Only Family Medicine Marcia Barriga, DO 11/24/2019 Telephone Family Medicine Marcia Barriga, DO 11/22/2019 Refill Family Medicine Marcia Barriga, DO 11/21/2019 Refill Family Medicine Marcia Barriga, DO 10/22/2019 Refill Family Medicine Stacey Pat, SECONDS HANDLER 10/16/2019 Telephone Family Medicine Belkys Mackey RN [...] hyperglycemia, without long-term current use of insulin ([facility]) after 05/03/2019 Results * CBC with platelet and differential (12/30/2019 3:32 PM CDT) [facility] WBC 7.0 3.8 - 10.8 [facility] Thousand/uL [facility] [place] RBC 4.96 4.20 - 5.80 [facility] Million/uL [facility] [place] HGB 15.2 13.2 - 17.1 g/dL [facility] [place] HCT 46.6 38.5 - 50.0 % [facility] [place] MCV 94.0 80.0 - 100.0 fL [facility] [place] MCH 30.6 27.0 - 33.0 pg [facility] [place] MCHC 32.6 32.0 - 36.0 g/dL [facility] [place] RDW 12.3 11.0 - 15.0 % [facility] [place] Platelet count 250 140 - 400 [facility] Thousand/uL [facility] [place] MPV 10.5 7.5 - 12.5 fL [facility] [place] Neutrophils, 4,403 1,500 - 7,800 [facility] absolute cells/uL [facility] [place] Lymphocytes, 2,114 850 - 3,900 cells/uL [facility] absolute [facility] [place] Monocytes, 392 200 - 950 cells/uL [facility] absolute [facility] [place] Eosinophils, 70 15 - 500 cells/uL [facility] absolute [facility] [place] Basophils, 21 0 - 200 cells/uL [facility] absolute [facility] [place] Neutrophils 62.9 % [facility] [place] Lymphocytes 30.2 % [facility] [place] Monocytes 5.6 % [facility] [place] Eosinophils 1.0 % [facility] [place] Basophils + RC 0.3 % [facility] [place] Specimen Blood Narrative Performed At FASTING:NO [facility] PATIENT UNABLE TO VOID; ADVISED TO RETU RN FOR COLLECTION. FASTING: NO Resulting Agency Comment Performing Organization Information: Site ID: [id number] Name: [facility] Address: [address] [place] [phone] Director: Juan Worthy Performing Organization Address City[place] [place] one Number [facility] [address] [phone] * Testosterone (12/30/2019 3:32 PM CDT) Pathologist [facility] Testosterone, 327 250 - 1,100 ng/dL [facility] total, lc/ms/ms Comment: Men with clinically significant hypogonadal symptoms and testosterone values repeatedly in the range (Note) For additional information, please refer to http://education.[employer].com/faq/TotalTestosteroneL CMSMS (This link is being provided for informational/educational purposes only.) This test was developed and its analytical performance characteristics have been determined by [employer]. It has not been cleared or approved by the FDA. This assay has been validated pursuant to the CLIA regulations and is used for clinical purposes. [facility] [address] [place] [address],[address] [place], [place] [id number] Gab Tesfaye MD Specimen Blood Narrative Performed At FASTING:NO [facility] PATIENT UNABLE TO VOID; ADVISED TO RETU RN FOR COLLECTION. FASTING: NO Resulting Agency Comment Performing Organization Information: Site ID: [id number] Name: [employer] Address: [address] [place] [address], [address] [place] [phone] Director: Gab Tesfaye MD Performing Organization Address [place] [place] one Number [facility] * Hemoglobin A1c (12/30/2019 3:32 PM CDT) Pathologist [facility] Hemoglobin A1C 13.1 (H) <5.7 % of total Hgb [facility] Comment: DIAGNOSTICS For someone without known [place] diabetes, a hemoglobin A1c value of 6.5% [...] Performing Organization Information: Site ID: [id number] Name: [facility] Address: [address] [place] [phone] Director: Juan Worthy Performing Organization Address City/State/Zipcode Ph one Number [employer] [address] [phone] * Lipid panel (12/30/2019 3:32 PM CDT) Pathologist [facility] Cholesterol, 222 (H) <200 mg/dL [facility] total [facility] [place] HDL cholesterol 48 > OR = 40 mg/dL [facility] [place] Triglycerides 754 (H) <150 mg/dL [facility] Comment: [...] calculated LDL cholesterol not DIAGNOSTICS calculated. Triglyceride [place] levels greater than 400 mg/dL invalidate calculated [...] LDL-C. Suhail SS et al. GABE. 2013;310(19): 5150-1931 (http://education.[employer].com/faq/LRV166) Cholesterol/HDL 4.6 <5.0 (calc) [facility] ratio [employer] [place] Non-HDL 174 (H) <130 mg/dL (calc) [facility] cholesterol Comment: DIAGNOSTICS For patients with diabetes [place] plus 1 major ASCVD risk factor, treating to a non-HDL-C goal of <100 mg/dL (LDL-C of <70 mg/dL) is considered a therapeutic option. Specimen Blood Narrative Performed At FASTING:NO [facility] PATIENT UNABLE TO VOID; ADVISED TO RETU RN FOR COLLECTION. FASTING: NO Resulting Agency Comment Performing Organization Information: Site ID: [id number] Name: [facility] Address: [address] [place] [phone] Director: Juan Worthy Performing Organization Address City/State/Zipcode Ph one Number [employer] [address] [phone] * Comprehensive metabolic panel (12/30/2019 3:32 PM CDT) Glucose 463 (H) 65 - 139 mg/dL [facility] Comment: DIAGNOSTICS Non-fasting [place] reference interval BUN 16 7 - 25 mg/dL [facility] Creatinine 0.68 (L) 0.70 - 1.25 mg/dL [facility] Comment: DIAGNOSTICS For patients >49 years of age, [place] the reference limit for Creatinine is approximately 13% higher for people identified as -[place] Island[place]. EGFR Non-Afr. 103 > OR = 60 [facility] mL/min/1.73m2 [facility] EGFR 119 > OR = 60 [facility] [place] Island[place] mL/min/1.73m2 [facility] BUN/creatinine 24 (H) 6 - 22 (calc) [facility] Sodium 134 (L) 135 - 146 mmol/L [facility] Potassium 4.5 3.5 - 5.3 mmol/L [facility] Chloride 98 98 - 110 mmol/L [facility] [employer] [place] CO2 29 20 - 32 mmol/L [facility] Calcium 9.3 8.6 - 10.3 mg/dL [facility] Protein 6.6 6.1 - 8.1 g/dL [facility] Albumin, S 3.8 3.6 - 5.1 g/dL [facility] [employer] [place] Globulin, total 2.8 1.9 - 3.7 g/dL [facility] (calc) [employer] [place] Albumin/globuli 1.4 1.0 - 2.5 (calc) [facility] n ratio [facility] [place] Total bilirubin 0.7 0.2 - 1.2 mg/dL [facility] [place] Alkaline 79 35 - 144 U/L [facility] phosphatase [facility] [place] AST 12 10 - 35 U/L [facility] [place] ALT 12 9 - 46 U/L [facility] [place] Specimen Blood Narrative Performed At FASTING:NO [facility] PATIENT UNABLE TO VOID; ADVISED TO RETU RN FOR COLLECTION. FASTING: NO Resulting Agency Comment Performing Organization Information: Site ID: [id number] Name: [facility] Address: [address] [place] [phone] Director: Juan Worthy Performing Organization Address City/State/Zipcode Ph one Number [facility] [employer] [place] [address] [place] [phone] after 05/03/2019 Insurance Type Payer Benefit Subscriber ID Effective Phone Address Plan / Dates Group HMO/PPO [facility] xxxxxxxxx 2019-P THCARE resent CHOICE/CHO ICE + Advance Directives For more information, please contact: [phone] Patient Account General Manager Explanation Type Date Recorded Advance Directives, Living Will and Medical Power of Video Game Animator
--- OUTSIDE RECORDS SUMMARY | 2020-05-03 14:36 | XMS REPORT | Continuity of Care Document ---
Author Author [facility] t Organization [facility] Address [address] [place] [address] Phone Unavailable Care Team Providers Care Gold Prospector Name Role Phone NONSTAFF PCP Unavailable Adelfo ARVIZU Attphys Unavailable Ben Barriga DO Attphys Bi SCHULERNStacey Attphys Unavailable Arnulfo Mackey RN Attphys Unavailable PHILIP MASTERSON Admphys Unavailable Payers Payer Name Policy Type Policy Number Effective Date Expiration Date Trisha bolton [facility]CHOICE +/08/2019-PresentHMO/ PPO xxxxxxxxx 2019 00:00:00 Abraham Eduardo [facility] Ppo [id number] 2006 00:00:00 [facility] Problems Condition Name Condition Details Condition Category Status Onset Date Resolution Date Last Treatment Date Treating Clinician Comments Source Chest pain Chest pain Disease Active 2020-01-11 00:00:00 Abraham Eduardo Essential hypertension Essential hypertension Disease Active 2020-01-11 00:00:[address] Acute pain of left shoulder Acute pain of left shoulder Disease Active 2020-01-11 00:00:00 Abraham Eduardo 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 Disease Active [...] or gangrene Disease Active 2017-06-11 00:00:00 Abraham Santiagofelipe Gait disturbance Gait disturbance Disease Active 2017-02-25 00:00:00 Abraham Eduardo Cerebrovascular accident (CVA) due to embolism of cere bral artery Cerebrovascular accident (CVA) due to embolism of cerebral artery Disease Active 2017-02-25 00:00:00 Ileanat raz Eduardo Right lower quadrant abdominal tenderness without rebo [...] pain Disease Active 2016-09-03 00:00:00 Ileanat raz Eduardo Melena Melena Disease Active 2016-09-03 00:00:00 Abraham Eduardo Alcohol abuse Alcohol abuse Disease Active 2016-09-03 00:00:00 Abraham Eduardo Abdominal pain Abdominal pain Problem Active [facility] Cerebrovascular accident (CVA) CVA (cerebral vascular accident) Pro blem Active [facility] Steatosis of liver Fatty liver Problem Active [facility] Microscopic hematuria Microscopic hematuria Problem Active [facility] Allergies, Adverse Reactions, Alerts Allergy Name Allergy Type Status Severity Reaction(s) Onset Date Inacti ve Date Treating Clinician Comments Source Penicillin Allergy to Substance Active 2016-11-11 00:00:00 [facility] Penicillins Propensity to adverse reactions to drug Active Anaphylaxis 2016-09-02 00:00:00 Abraham Meth georgetteist Family History Family Member Diagnosis Comments Start Date Stop Date Source Natural father Diabetes Rosario Me thodist Natural father Heart disease Abraham Eduardo Natural father Hyperlipidemia [place] Natural father Hypertension Abraham Eduardo Maternal grandfather Diabetes [place] Maternal grandfather Heart disease H ramone Eduardo Maternal grandfather Stroke [place] Eduardo Maternal grandmother Diabetes Ileana cheema Sabianist Paternal grandmother Heart disease H ramone Sabianist Social History Social Habit Start Date Stop Date Quantity Comments Source Sex Assigned At Jose Roberto ortiz Sabianist Alcohol intake 2020-01-11 00:00:00 2020-01-11 00:00:00 Current [...] glucose scanning reader (FreeStyle Benito 14 Day [place] ) misc 2020-01-04 00:00:00 2020-01-18 23:59:00 No [...] 300 mg capsule 2019-12-30 00:00:00 Yes 600mg [id number] Take 2 capsules (600 mg total) by [...] Eduardo losartan (COZAAR) 50 MG tablet 2019-09-22 00:00:2019-12-30 00 :00:00 No TAKE 1 TABLET BY [...] Eduardo traZODone (DESYREL) 50 MG tablet 2019-08-04 00:00:2019-11 00:00:00 No TAKE 1 TABLET BY MOUTH [...] 00:00 :00 2019-11-24 00:00:00 No TID Abraham gonzales losartan (COZAAR) 50 MG tablet 2019-03-19 00:00:00 [...] meals. Abraham Eduardo lancets (ACCU-CHEK MULTICLIX LANCET) [facility] [place] 2016-09-27 00:00:0 0 Yes Type 2 diabetes mellitus with hyperglycemia, without long-term current use of insulin (HCC) Test daily before all meals/snacks and once bef ore bedtime. Abraham Eduardo ACCU-CHEK COMPACT TEST strip 2016-09-12 00:00:00 Y es Type 2 diabetes mellitus with hyperglycemia, without long-term current use of insulin (HCC) Test daily before all meals/snacks and once before bedtime. Abraham Eduardo Insulin Glargine (Lantus 3ML Pen) 100 Units/1 Ml Inj I nsulin Glargine (Lantus 3ML Pen) 100 Units/1 Ml Inj Yes 30 Daily [facility] Cilostazol 100 Mg Tablet, 100 Mg Oral Cilostazol 100 Mg Tablet, 100 Mg Oral 2017-02-11 00:00:00 No 100 Twice A Day [facility] Valacyclovir Hcl (Valacyclovir) 500 Mg Tablet, 1000 Mg Oral Valacyclovir Hcl (Valacyclovir) 500 Mg Tablet, 1000 Mg Oral 2016-11-11 00:00:00 No 1000 Three Times A Day [facility] Vital Signs Vital Name Observation Time Observation Value Comments Source Systolic blood pressure 2020-01-11 11:31:00 160 mm[Hg] Abraham Eduardo Diastolic blood pressure 2020-01-11 11:31:00 85 mm[Hg] Abraham Eduardo Heart rate 2020-01-11 11:31:00 91 /min Abraham Eduardo Body temperature 2020-01-11 11:31:00 36.72 Gabrielle [place] Sabian[place] Body height 2020-01-11 11:31:00 170.2 cm Abraham Eduardo Body weight 2020-01-11 11:31:00 87.998 kg Abraham Eduardo BMI 2020-01-11 11:31:00 30.38 kg/m2 Abraham Eduardo Oxygen saturation in Arterial blood by Pulse oximetry 01-10 11:31:00 94 /min Abraham Eduardo Procedures Procedure Date / Time Performed Performing Clinician [facility] e HEMOGLOBIN A1C 2019-12-30 15:32:00 Marcia Barriga CBC WITH PLATELET AND DIFFERENTIAL 2019-12-30 15:32:00 Marcia Vaca COMPREHENSIVE METABOLIC PANEL 2019-12-30 15:32:00 Marcia Barriga LIPID PANEL 2019-12-30 15:32:00 Marcia Barriga TESTOSTERONE 2019-12-30 15:32:00 Marcia Barriga Plan of Care Planned Activity Planned Date Details Comments Source Future Scheduled Test 2020-12-29 00:00:00 DIABETIC FOOT EXAM [code = DIABETIC FOOT EXAM] [facility] Future Scheduled Test 2020-05-26 00:00:00 INFLUENZA VACCINE [code = INFLUENZA VACCINE] [facility] Future Scheduled Test 2019-05-16 00:00:00 URINE MICROALBUMIN [code = URINE MICROALBUMIN] [facility] Future Scheduled Test 2008 00:00:00 COLONOSCOPY SCREEN ING [code = COLONOSCOPY SCREENING] [facility] Future Scheduled Test 2008 00:00:00 SHINGLES VACCINES (#1) [code = SHINGLES VACCINES (#1)] [facility] Future Scheduled Test 1960 00:00:00 DIABETIC RETINAL E YE EXAM [code = DIABETIC RETINAL EYE EXAM] Abraham Eduardo Encounters Start Date/Time End Date/Time [facility] ID Source 2020-01-11 00:00:00 2020-01-11 00:00:00 Outpatient Nicolás BARRIGA [facility] [id number] Abraham Eduardo 2020-01-04 00:00:00 2020-01-04 00:00:00 Outpatient Nicolás BARRIGA [facility] [id number] Abraham Eduardo 2019-12-30 00:00:00 2019-12-30 00:00:00 Outpatient Nicolás BARRIGA [facility] [id number] Abraham Eduardo 2019-10-15 13:40:00 2019-10-15 15:02:00 Departed Emergency Room [facility] [id number] [facility] Results Test Description Test Time Test Comments Results Result Comments Source CHEST SINGLE (PORTABLE) 2020-05-03 14:28:00 [place] [address] Patient Name: LINA BAXTER MR #: [id number] : 1960 Age/Sex: 59/M Req #: [id number] Adm Physician: Ordered by: GASPER AVILES MD Report #: [id number] Location: ER Room/Bed: Procedure: [id number] DX/CHEST SINGLE (PORTABLE) Exam Date: 05/03/20 Exam Time: 1411 REPORT STATUS: Signed EXAMINATION: CHEST SINGLE (PORTABLE) INDICATION: Right breast mass COMPARISON: None FINDINGS: LINES/TUBES:None LUNGS:The lungs are well-inflated. No focal consolidation or pulmonary edema. PLEURA:No pleural effusion or pneumothorax. MEDIASTINUM:The cardiomediastinal silhouette appears normal in size and shape. BONES/SOFT TISSUES:No acute osseous injury. ABDOMEN:No free air under the diaphragm. IMPRESSION: No focal pneumonia or pulmonary edema. Signed by: Dexter Rosen MD on 05/03/2020 2:28 PM Dictated By: DEXTER ROSEN MD [id number] Transcribed By: SILVESTRE on 05/03/20 1428 COPY TO: GASPER AVILES MD Comprehensive metabolic panel 2020-01-01 21:39:00 Test Item Glucose (test code = 2345-7) 463 mg/dL 65-139 H Non-fasting reference interval BUN (test code = 3094-0) 16 mg/dL 7-25 Creatinine (test code = 2160-0) 0.68 mg/dL 0.7-1.25 L For patients >49 years of age, the reference limitfor Creatinine is approximately 13% higher for peopleidentified as -[place]. EGFR Non-Afr. [place] (test code = 2775) 103 > OR = 60 mL /min/1.73m2 EGFR (test code = 85978-2) 119 > OR = 60 mL/min/1.73m2 BUN/creatinine ratio (test code = 3097-3) 24 6- 22 (calc) H Sodium (test code = 2951-2) 134 mmol/L 135-146 L Potassium (test code = 2823-3) 4.5 mmol/L 3.5-5.3 Chloride (test code = 5-0) 98 mmol/L 98-110 CO2 (test code = 2027-9) 29 mmol/L 20-32 Calcium (test code = 33373-2) 9.3 mg/dL 8.6-10.3 Protein (test code = 2885-2) 6.6 g/dL 6.1-8.1 Albumin, S (test code = 1751-7) 3.8 g/dL 3.6-5.1 Globulin, total (test code = 62187-0) 2.8 1.9- 3.7 g/dL (c alc) Albumin/globulin ratio (test code = 1759-0) 1.4 1.0- 2.5 ( calc) Total bilirubin (test code = 1974-) 0.7 mg/dL 0.2-1.2 Alkaline phosphatase (test code = 6768-6) 79 U/L 35-144 AST (test code = 1920-8) 12 U/L 10-35 ALT (test code = 1742-6) 12 U/L 9-46 MARK (test code = MARK) FASTING:NOPATIENT UNABLE TO VOID; ADVISED TO RETURN FOR COLLECTION.FASTING: NO RAC (test code = RAC) Performing Organization Info rmation: Site ID: RGA Name: [facility] Address: [address] [place] [phone] Director: Juan Worthy Lab Interpretation (test code = 00141-4) Abnormal Geraldine MethodistLipid [id number] 21:39:00* Test Item Value Reference Range Interpretation Comments Cholesterol, total (test code = 2092-3) 222 mg/dL <200 H HDL cholesterol (test code = 2084-9) 48 mg/dL > OR = 40 Triglycerides [...] 2015;9:129-169. LDL cholesterol calculated (test code = 40989-4) mg/dL (calc) LDL cholesterol not calculated. Triglyceride [...] equation in the estimation of LDL-C. Suhail NARVAEZ et al. GABE. 2013;310(19): 7100-7368 (http://education.[employer]/faq/RSV336) Cholesterol/HDL ratio (test code = 9830-1) 4.6 <5.0 (calc) Non-HDL cholesterol (test code = 54432-1) 174 <130 mg/dL ( calc) H For patients with diabetes plus 1 major ASCVD risk factor, treating to a non-HDL-C goal of <100 mg/dL (LDL-C of <70 mg/dL) is considered a therapeutic option. MARK (test code = MARK) FASTING:NOPATIENT UNABLE TO VOID; ADVISED TO RETURN FOR COLLECTION.FASTING: NO RAC (test code = RAC) Performing Organization Info rmation: Site ID: RGA Name: [facility] Address: [address] [place] [phone] Director: Juan Worthy Lab Interpretation (test code = 67544-3) Abnormal Rosario MethodistHemoglobin [id number] 21:39:00* Test Item Value Reference Range Interpretation Comments Hemoglobin A1C (test code = 4548-4) 13.1 <5.7 % of total Hg b H For someone without known diabetes, a hemoglobin C2qmrzcy of 6.5% or greater indicates that they [...] Organization Info rmation: Site ID: RGA Name: [facility] Address: [address] [place] [phone] Director: Juan Worthy Lab Interpretation (test code = 70602-5) Abnormal Geraldine [id number] 21:39:00* Test Item Value Reference Range Interpretation Comments Testosterone, total, lc/ms/ms (test code = 2986-8) 327 ng/dL 250 -1100 Men with clinically significant hypogonadal symptoms and testosterone values repeatedly in the range(Note)For additional information, please refer tohttp://education.[employer]/faq/TotalTestosteroneLCMSMS(This link is being provided for informational/educational purposesonly.)This test was developed and its analytical performancecharacteristics have been determined by [employer]. It has notbeen cleared or approved by the FDA. This assay has been validatedpursuant to the CLIA regulations and is used for clinical purposes. MDFmed [address] [place] [address],[address] 7 [phone] R Middleman, MD MARK (test code = MARK) FASTING:NOPATIENT UNABLE TO VOID; ADVISED TO RETURN FOR COLLECTION.FASTING: NO RAC (test code = RAC) Performing Organization Info rmation: Site ID: [id number] Name: [facility] Address: [address] [place] [address], [address] [place] [phone] Director: Gab Tesfaye MD Geraldine [facility] centerCB with platelet and [id number] 21:39:00* Test Item Value Reference Range Interpretation [...] Organization Info rmation: Site ID: RGA Name: [facility] Address: [address] [place] [phone] Director: Juan Rosario Methodist[facility] A Streptococcus [id number] 14:41:00* Test Item Value Reference Range Interpretation Comments Group A Streptococcus Screen (test code = 36968-1) NEGATIVE NEG ATIVE [facility],B Antigen 2019-10-15 14:37:00* Test Item Value Reference Range Interpretation Comments Influenza Virus Types A,B Antigen (test code = 65028-9) NEGATIVE NEGATIVE [facility]
[2020-05-03 14:45] LABS: BASOPHILS % 0.2 % (0.0-1.0); EOSINOPHILS # (AUTO) 0.1 (0.0-0.4); EOSINOPHILS % 0.7 % (0.0-6.0); HEMATOCRIT 39.6 % (38.2-49.6); HEMOGLOBIN 13.2 g/dL (14.0-18.0); LYMPHOCYTES # (AUTO) 2.5 (1.0-3.2); LYMPHOCYTES % 21.3 % (18.0-39.1); MEAN CORPUSCULAR HEMOGLOBIN 30.6 pg (28-32); MEAN CORPUSCULAR HGB CONC 33.3 g/dL (31-35); MEAN CORPUSCULAR VOLUME 91.7 fL (81-99); MONOCYTES # (AUTO) 0.8 (0.2-0.8); MONOCYTES % 6.7 % (4.4-11.3); NEUTROPHILS # (AUTO) 8.3 (2.1-6.9); NEUTROPHILS % 70.7 % (38.7-80.0); PLATELET COUNT 231 x10e3/uL (140-360); RED BLOOD COUNT 4.32 x10e6/uL (4.3-5.7); RED CELL DISTRIBUTION WIDTH 12.4 % (11.7-14.4)
[2020-05-03] MEDS ORDERED: MORPHINE SULFATE INJ 4 MG/ML INJ 1ML IV PRN (14:45)
[2020-05-03 14:55] LABS: INR 0.92; PROTHROMBIN TIME 12.8 seconds (11.9-14.5)
[2020-05-03 14:56] LABS: PARTIAL THROMBOPLASTIN TIME 32.9 seconds (23.8-35.5)
[2020-05-03 15:07] LABS: ALANINE AMINOTRANSFERASE 9 IU/L (0-55); ALBUMIN 3.9 g/dL (3.5-5.0); ALBUMIN/GLOBULIN RATIO 1.3 (0.8-2.0); ALKALINE PHOSPHATASE 66 IU/L (40-150); ANION GAP 15.9 mmol/L (8-16); BLOOD UREA NITROGEN 14 mg/dL (7-26); BUN/CREATININE RATIO 17 (6-25); CALCIUM 8.7 mg/dL (8.4-10.2); CARBON DIOXIDE 21 mmol/L (22-29); CHLORIDE 105 mmol/L (98-107); CREATINE KINASE 48 IU/L (30-200); CREATININE, SERUM 0.84 mg/dL (0.72-1.25); EST GLOMERULAR FILTRATION RATE > 60 ML/MIN (60-); GLUCOSE 175 mg/dL (74-118); POTASSIUM 3.9 mmol/L (3.5-5.1); SODIUM 138 mmol/L (136-145)
[2020-05-03] MEDS: CEFEPIME 2 GM/NS 0.9% 100 ML 100 ML IV SCH (15:21)
--- NOTE | 2020-05-03 15:55 | Emergency Department Note ---
History of Present Illnes History of Present Illness Chief Complaint: General Medicine Complaints History of Present Illness This is a 59 year old male pt came in POV for c/o right axillary pain, pt states that he noticed a "boil" growing under his right armpit 2 days ago and now that it has spread to his right upper chest with some redness and induration, pt denies any instance of insect bites to the area. Historian: Patient Arrival Mode: Car EMS Treatment DIRECTOR OF GRADUATE ADMISSIONS: IV Straight Tooth Gear Generator Operator Required: No Onset (how long ago): day(s) (2) Location: right axilla Quality: pain/swelling Radiation: Reports non-radiation Severity: moderate Onset quality: gradual Timing of current episode: constant Progression: worsening Chronicity: new Context: Denies recent illness Relieving factors: none Exacerbating factors: none Associated symptoms: Reports denies other symptoms Past Medical/Family History Physician Review I have reviewed the patient's past medical and family history. Any updates have been documented here. Past Medical History Recent Fever: No Clinical Suspicion of Infectio: Yes New/Unexplained Change in Ment: No Past Medical History: Hypertension, Diabetes Other Medical History: SHINGLES Past Surgical History: None Other Surgery: R CAROTID ENDARTERECTOMY KNEE SURGERY Social History Smoking Cessation: Never Smoker Counseling Performed: No Alcohol Use: Social Any Illegal Drug Use: No TB Exposure/Symptoms: No Physically hurt or threatened: No Family History Family history of heart diseas: No Other Last Tetanus: UNKNOWN Any Pre-Existing Lines (PICC,: No Review of Systems Review of Systems Constitutional: Reports no symptoms EENTM: Reports no symptoms Cardiovascular: Reports no symptoms Respiratory: Reports no symptoms Gastrointestinal: Reports no symptoms Genitourinary: Reports no symptoms Musculoskeletal: Reports no symptoms Integumentary: Reports as per HPI Neurological: Reports no symptoms Psychological: Reports no symptoms Endocrine: Reports no symptoms Hematological/Lymphatic: Reports no symptoms Physical Exam Related Data Allergies: Coded Allergies: Penicillins (Verified Allergy, Unknown, 11/11/16) Triage Vital Signs Vital Signs Date Time Temp Pulse Resp B/P (MAP) Pulse Ox O2 Delivery O2 Flow Rate FiO2 05/03/20 13:25 98.1 102 18 124/80 97 Room Air Vital signs reviewed: Yes Physical Exam CONSTITUTIONAL Constitutional: Present well-developed, Present well-nourished HENT HENT: Present normocephalic, Present atraumatic, Present oropharynx clear/moist, Present nose normal HENT L/R: Present left ext ear normal, Present right ext ear normal EYES Eyes: Reports PERRL, Reports conjunctivae normal NECK Neck: Present ROM normal PULMONARY Pulmonary: Present effort normal, Present breath sounds normal CARDIOVASCULAR Cardiovascular: Present regular rhythm, Present heart sounds normal, Present capillary refill normal, Present normal rate GASTROINTESTINAL Abdominal: Present soft, Present nontender, Present bowel sounds normal GENITOURINARY Genitourinary: Present exam deferred SKIN Skin: Present other (5 cm axillary abscess with fluctuance, tender. Breat exam - right breast with firm subcutaneous mass ~2.5 cm, tender, mobile) MUSCULOSKELETAL Musculoskeletal: Present ROM normal NEUROLOGICAL Neurological: Present alert, Present oriented x 3, Present no gross motor or sensory deficits PSYCHOLOGICAL Psychological: Present mood/affect normal, Present judgement normal Results Laboratory Result Diagram: 05/03/20 1434 05/03/20 1434 Laboratory Laboratory Tests Test 05/03/20 14:34 White Blood Count 11.71 x10e3/uL (4.8-10.8) Red Blood Count 4.32 x10e6/uL (4.3-5.7) Hemoglobin 13.2 g/dL (14.0-18.0) Hematocrit 39.6 % (38.2-49.6) Mean Corpuscular Volume 91.7 fL (81-99) Mean Corpuscular Hemoglobin 30.6 pg (28-32) Mean Corpuscular Hemoglobin Concent 33.3 g/dL (31-35) Red Cell Distribution Width 12.4 % (11.7-14.4) Platelet Count 231 x10e3/uL (140-360) Neutrophils (%) (Auto) 70.7 % (38.7-80.0) Lymphocytes (%) (Auto) 21.3 % (18.0-39.1) Monocytes (%) (Auto) 6.7 % (4.4-11.3) Eosinophils (%) (Auto) 0.7 % (0.0-6.0) Basophils (%) (Auto) 0.2 % (0.0-1.0) Neutrophils # (Auto) 8.3 (2.1-6.9) Lymphocytes # (Auto) 2.5 (1.0-3.2) Monocytes # (Auto) 0.8 (0.2-0.8) Eosinophils # (Auto) 0.1 (0.0-0.4) Basophils # (Auto) 0.0 (0.0-0.1) Absolute Immature Granulocyte (auto 0.05 x10e3/uL (0-0.1) Prothrombin Time 12.8 seconds (11.9-14.5) Prothromb Time International Ratio 0.92 Activated Partial Thromboplast Time 32.9 seconds (23.8-35.5) Sodium Level 138 mmol/L (136-145) Potassium Level 3.9 mmol/L (3.5-5.1) Chloride Level 105 mmol/L (98-107) Carbon Dioxide Level 21 mmol/L (22-29) Anion Gap 15.9 mmol/L (8-16) Blood Urea Nitrogen 14 mg/dL (7-26) Creatinine 0.84 mg/dL (0.72-1.25) Estimat Glomerular Filtration Rate > 60 ML/MIN (60-) BUN/Creatinine Ratio 17 (6-25) Glucose Level 175 mg/dL (74-118) Calcium Level 8.7 mg/dL (8.4-10.2) Total Bilirubin 0.7 mg/dL (0.2-1.2) Aspartate Amino Transf (AST/SGOT) 9 IU/L (5-34) Alanine Aminotransferase (ALT/SGPT) 9 IU/L (0-55) Alkaline Phosphatase 66 IU/L (40-150) Creatine Kinase 48 IU/L (30-200) Creatine Kinase MB 0.70 ng/mL (0-5.0) Troponin I < 0.001 ng/mL (0-0.300) Total Protein 6.9 g/dL (6.5-8.1) Albumin 3.9 g/dL (3.5-5.0) Globulin 3.0 g/dL (2.3-3.5) Albumin/Globulin Ratio 1.3 (0.8-2.0) Lab results reviewed: Yes Imaging Imaging results reviewed: Yes Procedures 12 Lead ECG Interpretation ECG Interpretation : ECG: ECG 1 Straight Tooth Gear Generator Operator: Interpreted by ED physician Date: May 03, 2020 Time: 14:54 Rhythm: sinus rhythm Rate: normal BPM: 90 QRS axis: normal ST segments normal: Yes T waves normal: Yes Other findings: LVH Clinical Impression: normal ECG Assessment & Plan Medical Decision Making MDM diabetic male with axillary abscess & ? right breast mass - cbc, chem, pt/ptt, blood cx's, cxr, cardiacs - eval for leukocytosis, renal insuff, bacteremia, coagulopathy, nstemi. I spoke with Dr Volodymyr Cobb from triage due to pt with breast mass and I am reluctant to I&D just in case this is a cancer - he wants pt admitted and he will I&D in OR Reassessment Reassessment admit to Dr Mckeon (on-call) Assessment & Plan Final Impression: (1) Axillary abscess (2) Breast mass in male Depart Disposition: ADMITTED Last Vital Signs Date Time Temp Pulse Resp B/P (MAP) Pulse Ox O2 Delivery O2 Flow Rate FiO2 05/03/20 13:25 98.1 102 18 124/80 97 Room Air Home Meds Reported Medications Insulin Glargine (LANTUS 3ML PEN) 100 Units/1 Ml Inj, 30 UNITS SQ DAILY 09/04/16 Medications in the ED Morphine Sulfate 4 mg ONCE STAT IV Last administered on 05/03/20at 15:20; Admin Dose 4 MG; Start 05/03/20 at 13:43; Stop 05/03/20 at 13:50; Status DC Ondansetron HCl 4 mg ONCE STAT IV Last administered on 05/03/20at 15:20; Admin Dose 4 MG; Start 05/03/20 at 13:43; Stop 05/03/20 at 13:50; Status DC Sodium Chloride 1,000 ml @ 0 mls/hr Q0M STAT IV Last administered on 05/03/20at 15:20; Admin Dose 999 MLS/HR; Start 05/03/20 at 13:43; Stop 05/03/20 at 13:46; Status DC Vancomycin HCl 250 ml @ 167 mls/hr NOW ONCE IV ; Start 05/03/20 at 13:45; Stop 05/03/20 at 15:14; Status DC GASPER AVILES MD May 03, 2020 15:55
--- NOTE | 2020-05-03 16:38 | NUR ---
Nursing report given given to Sarah LANDA
[2020-05-03] MEDS: SODIUM CHLORIDE 0.9% 1000ML 1,000 ML IV SCH (17:00)
[2020-05-03 17:33] VITALS: BP 150/83
[2020-05-03] MEDS ORDERED: GABAPENTIN300 MG PO (17:41)
[2020-05-03] MEDS ORDERED: CLOPIDOGREL75 MG PO (17:41)
[2020-05-03] MEDS ORDERED: LOSARTAN POTASS25 MG PO (17:41)
[2020-05-03] MEDS ORDERED: SERTRALINE HCL50 MG PO (17:41)
[2020-05-03] MEDS ORDERED: JARDIANCE25 MG PO (17:41)
[2020-05-03] MEDS ORDERED: OZEMPIC1 MG/0.75 SC (17:53)
[2020-05-03] MEDS: VANCOMYCIN 1GM/NS 250 ML 250 ML IV SCH (19:00)
[2020-05-03] MEDS ORDERED: ACETAMINOPHEN 325 MG TAB PO PRN (19:00)
[2020-05-03] MEDS ORDERED: DEXTROSE 50% SYRINGE 50 ML IV PRN (19:00)
[2020-05-03] MEDS ORDERED: HYDRALAZINE HCL 20 MG/ML VIAL IV PRN (19:00)
--- NOTE | 2020-05-03 19:15 | NUR ---
report given to pm nurse.
[2020-05-03 20:00] VITALS: BP 136/85
[2020-05-03] MEDS: GABAPENTIN 300 MG CAP PO SCH (21:20)
[2020-05-03] MEDS: ACETAMINOPHEN/CODEINE 300MG - 30MG TAB PO PRN (21:25)
[2020-05-03] MEDS: INSULIN LISPRO 100 UNIT/1 ML 3ML VIAL SQ SCH (21:27)
[2020-05-04] VITALS (8 sets, daily range): BP systolic 133–154; BP diastolic 73–89
--- NOTE | 2020-05-04 00:43 | NUR ---
SPOKE TO MD MASTERSON'S WASHER OFF NEGRITO. NEW ORDERS RECEIVED.
[2020-05-04] MEDS ORDERED: MORPHINE SULFATE 2 MG/ML SYR 1ML IV ONE (00:45)
[2020-05-04] MEDS: CEFEPIME 2 GM/NS 0.9% 100 ML 100 ML IV SCH ×2 (03:30→15:45)
[2020-05-04 06:27] LABS: BASOPHILS % 0.1 % (0.0-1.0); EOSINOPHILS # (AUTO) 0.1 (0.0-0.4); EOSINOPHILS % 0.9 % (0.0-6.0); HEMATOCRIT 38.7 % (38.2-49.6); HEMOGLOBIN 13.2 g/dL (14.0-18.0); LYMPHOCYTES # (AUTO) 1.8 (1.0-3.2); LYMPHOCYTES % 16.3 % (18.0-39.1); MEAN CORPUSCULAR HEMOGLOBIN 32.4 pg (28-32); MEAN CORPUSCULAR HGB CONC 34.1 g/dL (31-35); MEAN CORPUSCULAR VOLUME 95.1 fL (81-99); MONOCYTES # (AUTO) 0.8 (0.2-0.8); MONOCYTES % 6.9 % (4.4-11.3); NEUTROPHILS # (AUTO) 8.6 (2.1-6.9); NEUTROPHILS % 75.4 % (38.7-80.0); PLATELET COUNT 199 x10e3/uL (140-360); RED BLOOD COUNT 4.07 x10e6/uL (4.3-5.7); RED CELL DISTRIBUTION WIDTH 12.5 % (11.7-14.4)
[2020-05-04 06:51] LABS: ALANINE AMINOTRANSFERASE 8 IU/L (0-55); ALBUMIN 3.7 g/dL (3.5-5.0); ALBUMIN/GLOBULIN RATIO 1.2 (0.8-2.0); ALKALINE PHOSPHATASE 57 IU/L (40-150); ANION GAP 18.9 mmol/L (8-16); BLOOD UREA NITROGEN 11 mg/dL (7-26); BUN/CREATININE RATIO 14 (6-25); CALCIUM 8.3 mg/dL (8.4-10.2); CARBON DIOXIDE 20 mmol/L (22-29); CHLORIDE 105 mmol/L (98-107); CREATININE, SERUM 0.79 mg/dL (0.72-1.25); EST GLOMERULAR FILTRATION RATE > 60 ML/MIN (60-); GLUCOSE 129 mg/dL (74-118); POTASSIUM 3.9 mmol/L (3.5-5.1); SODIUM 140 mmol/L (136-145)
--- NOTE | 2020-05-04 07:20 | NUR ---
REPORT GIVEN TO DAYSHIFT NURSE. ALERT AND RESTING IN BED. NO SIGNS IV INFILTRATION. BED LOCKED AND IN LOW POSITION. CALL LIGHT WITHIN REACH. BED ALARM ACTIVATED.
[2020-05-04] MEDS: FAMOTIDINE 20 MG TAB PO SCH ×2 (07:30→16:30)
[2020-05-04] MEDS: INSULIN LISPRO 100 UNIT/1 ML 3ML VIAL SQ SCH ×4 (07:30→21:00)
[2020-05-04] MEDS: ACETAMINOPHEN/CODEINE 300MG - 30MG TAB PO PRN (07:45)
--- NOTE | 2020-05-04 07:45 | NUR ---
PATIENT IN BED RESTING WITH NO S/S OF DISTRESS. C/O PAIN AND WAS MEDICATED ORDERED. IV FLUID INFUSING ORDERED. BED IN LOWER POSITION, CALL LIGHT AT REACH.
[2020-05-04] MEDS: LOSARTAN POTASSIUM 25 MG TAB PO SCH (09:00)
[2020-05-04] MEDS: GABAPENTIN 300 MG CAP PO SCH ×3 (09:00→20:40)
[2020-05-04] MEDS: SERTRALINE HCL 50 MG TAB PO SCH (09:00)
[2020-05-04] MEDS ORDERED: MORPHINE SULFATE INJ 4 MG/ML INJ 1ML IV PRN (11:00)
--- NOTE | 2020-05-04 12:06 | NUR ---
PATIENT AMBULATED IN HALLWAY WITH PHYSICAL THERAPY. REMAINS NPO FOR A PROCEDURE. BACK IN BED WITH CALL LIGHT AT REACH.
--- NOTE | 2020-05-04 12:36 | NUR ---
PATIENT OFF TO OR.
[2020-05-04] MEDS ORDERED: HYDROCODONE/APAP 7.5MG-325MG 1 EA TAB PO PRN (14:00)
--- NOTE | 2020-05-04 14:21 | NUR ---
Discontinuing PT services since patient is independent in functional mobility. Thank you Addendum: 05/04/20 at 1422 by Tristen vasquez PT Amended: Links added.
--- NOTE | 2020-05-04 14:46 | Operative Report ---
DATE OF PROCEDURE: 05/04/2020 SURGEON: Clark Cobb MD PREOPERATIVE DIAGNOSIS: Right axillary adenopathy with abscess. POSTOPERATIVE DIAGNOSIS: Right axillary adenopathy with abscess. OPERATION PERFORMED: Right axillary lymphadenectomy with drainage of abscess. ANESTHESIA: General. COMPLICATIONS: None. ESTIMATED BLOOD LOSS: Minimal. DESCRIPTION OF PROCEDURE: With the patient lying in bed in the supine position under good general anesthesia, the right axilla was prepped with Betadine solution and draped in the usual manner. An incision was made at the base of the right axilla, taken down through the subcutaneous tissue and through the superficial fascia, immediately an abscess was entered, which included multiple enlarged lymph nodes, which were debrided. The specimen was sent for pathological examination. Multiple loculations were broken. Cultures were taken. After all the necrotic tissue was debrided and hemostasis was ascertained, the wound was then copiously irrigated with dilute Betadine solution. The wound was then packed with 1-inch iodoform gauze. A dressing was applied. The sponge, lap, and needle count was correct. The patient tolerated the procedure well and returned to the recovery room in stable condition. MD TERE Up/MODL /[id number]
--- NOTE | 2020-05-04 15:15 | NUR ---
PATIENT BACK TO UNIT FROM OR. HAD AI/D OF RIGHT AXILLARY ABSCESS. DRESSING DRY AND INTACT TO RIGHT ARMPIT. PATIENT REQUESTED AND RECEIVED A CUP OF ICE WATER. SITTING AT BED SIDE TALKING ON THE PHONE. BED IN LOWER POSITION, CALL LIGHT AT REACH. V/S 97.7-85-18-137/86 AND 98% ON RA.
[2020-05-04] MEDS: SODIUM CHLORIDE 0.9% 1000ML 1,000 ML IV SCH (15:45)
[2020-05-04] MEDS: VANCOMYCIN 1GM/NS 250 ML 250 ML IV SCH (19:00)
--- NOTE | 2020-05-04 19:30 | NUR ---
INITIAL ASSESSMENT COMPLETE, NO DISTRESS NOTED, CALL LIGHT IN REACH, VS WNL, RIGHT AXILLARY DRESSING INTACT, NO C/O PAIN AT THIS TIME, SCDS PLACED ON PT, IV INTACT,
--- NOTE | 2020-05-04 20:05 | NUR ---
PT COMPLAIN OF CHEST PAIN, NO SOB, TIGHTNESS IN CHEST, EKG ORDERED, O2 2L NC APPLIED, VS WNL, CALL PLACED TO EVELYN COLLINS, CARDIAC MARKERS ORDERED, CONTINUE TO MONITOR PT.
[2020-05-04] MEDS: MORPHINE SULFATE 2 MG/ML SYR 1ML IV PRN (20:20)
--- NOTE | 2020-05-04 20:20 | NUR ---
EKG NORMAL, VS WNL, O2 2L NC ON PT, NO OTHER SIGNS, MORPHINE GIVEN FOR PAIN, CALL LIGHT IN REACH, CONTINUE TO MONITOR PT
[2020-05-04] MEDS ORDERED: ASPIRIN 81 MG CHEW TAB PO ONE (20:30)
[2020-05-04 20:56] LABS: CREATINE KINASE 38 IU/L (30-200)
[2020-05-04] MEDS ORDERED: DEXAMETHASONE SOD PHOS INJ 4 MG/ML VIAL ONE (21:36)
[2020-05-04] MEDS ORDERED: PROPOFOL IV EMULSION 10 MG/ML 20 ML VIAL ONE (21:36)
[2020-05-04] MEDS ORDERED: LIDOCAINE HCL 2% JELLY 5 ML TUBE ONE (21:36)
[2020-05-04] MEDS ORDERED: ONDANSETRON HCL INJ 2MG/ML 2ML 2 MG/ML VIAL ONE (21:36)
[2020-05-04] MEDS ORDERED: SEVOFLURANE INHAL SOLN 250 ML PEN BTL ONE (21:36)
[2020-05-04] MEDS ORDERED: ETOMIDATE 2 MG/ML 10 ML INJ IV ONE (21:36)
[2020-05-05] VITALS (7 sets, daily range): BP systolic 131–151; BP diastolic 73–88
--- NOTE | 2020-05-05 | NUR ---
PT DOES NOT COMPLAIN OF CHEST PAIN AT THIS TIME, VS WNL, CONTINUE TO MONITOR PT CONDITION
[2020-05-05] MEDS: CEFEPIME 2 GM/NS 0.9% 100 ML 100 ML IV SCH ×2 (02:34→15:16)
[2020-05-05] MEDS: MORPHINE SULFATE 2 MG/ML SYR 1ML IV PRN ×2 (02:35→20:32)
[2020-05-05] MEDS ORDERED: ASPIRIN 81 MG CHEW TAB PO ONE (05:30)
--- NOTE | 2020-05-05 06:26 | NUR ---
PT AWAKE EASILY, NO DISTRESS NOTED MAZIN LIGHT IN REACH
[2020-05-05 07:09] LABS: BASOPHILS % 0.2 % (0.0-1.0); EOSINOPHILS # (AUTO) 0.1 (0.0-0.4); EOSINOPHILS % 1.1 % (0.0-6.0); HEMATOCRIT 37.4 % (38.2-49.6); HEMOGLOBIN 12.3 g/dL (14.0-18.0); LYMPHOCYTES # (AUTO) 1.8 (1.0-3.2); MEAN CORPUSCULAR HEMOGLOBIN 30.8 pg (28-32); MEAN CORPUSCULAR HGB CONC 32.9 g/dL (31-35); MEAN CORPUSCULAR VOLUME 93.5 fL (81-99); MONOCYTES # (AUTO) 0.8 (0.2-0.8); MONOCYTES % 7.4 % (4.4-11.3); NEUTROPHILS # (AUTO) 7.8 (2.1-6.9); NEUTROPHILS % 73.9 % (38.7-80.0); PLATELET COUNT 223 x10e3/uL (140-360); RED CELL DISTRIBUTION WIDTH 12.4 % (11.7-14.4)
--- NOTE | 2020-05-05 07:20 | NUR ---
PATIENT IN BED RESTING WITH HEAD OF BED ELEVATED, NO DISTRESS NOTED. DRESSING DRY AND INTACT TO RIGHT AXILLARY. IV FLUID INFUSING ORDERED. BED IN LOWER POSITION, CALL LIGHT AT REACH.
[2020-05-05] MEDS: INSULIN LISPRO 100 UNIT/1 ML 3ML VIAL SQ SCH ×4 (07:30→21:00)
[2020-05-05] MEDS: FAMOTIDINE 20 MG TAB PO SCH ×2 (07:30→16:54)
[2020-05-05 08:14] LABS: ALANINE AMINOTRANSFERASE 7 IU/L (0-55); ALBUMIN 3.4 g/dL (3.5-5.0); ALBUMIN/GLOBULIN RATIO 1.2 (0.8-2.0); ALKALINE PHOSPHATASE 51 IU/L (40-150); ANION GAP 16.9 mmol/L (8-16); BLOOD UREA NITROGEN 9 mg/dL (7-26); BUN/CREATININE RATIO 13 (6-25); CARBON DIOXIDE 22 mmol/L (22-29); CHLORIDE 103 mmol/L (98-107); CREATININE, SERUM 0.72 mg/dL (0.72-1.25); EST GLOMERULAR FILTRATION RATE > 60 ML/MIN (60-); GLUCOSE 106 mg/dL (74-118); POTASSIUM 4.9 mmol/L (3.5-5.1); SODIUM 137 mmol/L (136-145)
[2020-05-05 08:24] LABS: CREATINE KINASE MB 0.5 ng/mL (0-5.0)
[2020-05-05] MEDS: GABAPENTIN 300 MG CAP PO SCH ×3 (09:26→20:32)
[2020-05-05] MEDS: SERTRALINE HCL 50 MG TAB PO SCH (09:26)
[2020-05-05] MEDS: LOSARTAN POTASSIUM 25 MG TAB PO SCH (09:26)
--- NOTE | 2020-05-05 11:06 | NUR ---
PATIENT IN BED RESTING WITH EYES CLOSED, NO DISTRESS NOTED. CALL LIGHT AT REACH.
[2020-05-05 13:02] LABS: CREATINE KINASE MB 0.6 ng/mL (0-5.0)
--- NOTE | 2020-05-05 17:00 | NUR ---
PATIENT SITTING UP IN BED EATING DINNER, NO COMPLAIN VOICED. CALL LIGHT AT REACH.
[2020-05-05] MEDS: VANCOMYCIN 1GM/NS 250 ML 250 ML IV SCH (20:32)
[2020-05-06] VITALS: BP 128/82
[2020-05-06 04:30] VITALS: BP 150/90
[2020-05-06] MEDS: CEFEPIME 2 GM/NS 0.9% 100 ML 100 ML IV SCH ×2 (04:52→14:55)
[2020-05-06] MEDS: MORPHINE SULFATE 2 MG/ML SYR 1ML IV PRN ×2 (05:31→14:45)
[2020-05-06 06:45] LABS: BASOPHILS % 0.3 % (0.0-1.0); EOSINOPHILS # (AUTO) 0.1 (0.0-0.4); EOSINOPHILS % 1.8 % (0.0-6.0); HEMATOCRIT 39.3 % (38.2-49.6); HEMOGLOBIN 12.8 g/dL (14.0-18.0); LYMPHOCYTES # (AUTO) 1.7 (1.0-3.2); LYMPHOCYTES % 23.9 % (18.0-39.1); MEAN CORPUSCULAR HEMOGLOBIN 30.7 pg (28-32); MEAN CORPUSCULAR HGB CONC 32.6 g/dL (31-35); MEAN CORPUSCULAR VOLUME 94.2 fL (81-99); MONOCYTES # (AUTO) 0.6 (0.2-0.8); NEUTROPHILS # (AUTO) 4.8 (2.1-6.9); NEUTROPHILS % 65.7 % (38.7-80.0); PLATELET COUNT 233 x10e3/uL (140-360); RED BLOOD COUNT 4.17 x10e6/uL (4.3-5.7); RED CELL DISTRIBUTION WIDTH 12.3 % (11.7-14.4)
[2020-05-06 07:08] LABS: ALANINE AMINOTRANSFERASE 8 IU/L (0-55); ALBUMIN 3.5 g/dL (3.5-5.0); ALBUMIN/GLOBULIN RATIO 1.1 (0.8-2.0); ALKALINE PHOSPHATASE 53 IU/L (40-150); ANION GAP 15.7 mmol/L (8-16); BLOOD UREA NITROGEN 9 mg/dL (7-26); BUN/CREATININE RATIO 13 (6-25); CALCIUM 8.5 mg/dL (8.4-10.2); CARBON DIOXIDE 25 mmol/L (22-29); CHLORIDE 104 mmol/L (98-107); CREATININE, SERUM 0.72 mg/dL (0.72-1.25); EST GLOMERULAR FILTRATION RATE > 60 ML/MIN (60-); GLUCOSE 125 mg/dL (74-118); POTASSIUM 4.7 mmol/L (3.5-5.1); SODIUM 140 mmol/L (136-145)
[2020-05-06] MEDS: INSULIN LISPRO 100 UNIT/1 ML 3ML VIAL SQ SCH ×2 (07:30→11:30)
--- NOTE | 2020-05-06 07:30 | NUR ---
PATIENT AMBULATING IN ROOM, NO COMPLAIN VOICED. DRESSING DRY AND INTACT TO RIGHT AXILLARY. CALL LIGHT AT REACH.
--- NOTE | 2020-05-06 07:35 | NUR ---
Patient endorsed to next shift for continuity of care.
[2020-05-06 08:00] VITALS: BP 147/91
[2020-05-06] MEDS: FAMOTIDINE 20 MG TAB PO SCH (08:00)
[2020-05-06] MEDS: LOSARTAN POTASSIUM 25 MG TAB PO SCH (09:05)
[2020-05-06] MEDS: GABAPENTIN 300 MG CAP PO SCH ×2 (09:06→14:55)
[2020-05-06] MEDS: SERTRALINE HCL 50 MG TAB PO SCH (09:06)
--- NOTE | 2020-05-06 11:33 | NUR ---
PATIENT AMBULATING IN HALLWAY BY SELF, NO COMPLAIN VOICED. WILL CONTINUE TO MONITOR.
[2020-05-06] MEDS ORDERED: TYLENOL # 31 EA PO (11:34)
[2020-05-06] MEDS ORDERED: CEFTIN PO (11:34)
[2020-05-06 12:00] VITALS: BP 135/84
--- NOTE | 2020-05-06 15:31 | NUR ---
SURGICAL DRESSING CHANGED AT BED SIDE BY DR ARVIZU. PATIENT RECEIVING IV ANTIBIOTIC AT THIS TIME. AFTER COMPLETION, HE WILL BE DISCHARGED.
[2020-05-06] MEDS ORDERED: LEVAQUIN500 MG PO (16:16)
[2020-05-06] MEDS ORDERED: CLINDAMYCIN HC150 MG PO (16:17)
--- NOTE | 2020-05-06 16:25 | NUR ---
PATIENT DISCHARGED HOME. DISCHARGE INSTRUCTIONS, PRESCRIPTIONS, AND FOLLOW UP GIVEN TO PATIENT, HE VERBALIZED UNDERSTANDING. IV TO LEFT HAND REMOVED WITH TIP INTACT. ALL PERSONAL ITEMS TAKEN WITH PATIENT. REFUSED WHEEL CHAIR, BUT WAS ACCOMPANIED BY HOSPITAL STAFF TO FRONT LOBBY IN STABLE CONDITION.
--- NOTE | 2020-05-07 08:20 | Discharge Summary ---
ADMISSION DIAGNOSES: Right axillary abscess, type 2 diabetes, hypertension, depression, history of CVA, obesity with a BMI of 30.7. DISCHARGE DIAGNOSES: Right axillary abscess, type 2 diabetes, hypertension, depression, history of CVA, obesity with a BMI of 30.7 plus MRSA of the right axillary abscess. HISTORY: Type 2 diabetes, hypertension, hyperlipidemia, CVA with right-sided weakness, and depression. PAST SURGICAL HISTORY: Bilateral knee scope, right carotid endarterectomy. FAMILY HISTORY: The patient's brother and sister had diabetes. The patient's sister had cancer. SOCIAL HISTORY: Noncontributory. HOSPITAL COURSE: A 59-year-old male admits with complaints of right axillary pain that began 2 days ago. Yesterday, he noticed redness and swelling. He denies drainage, fever, and known insect bites. Pain worsened with movement and palpation. On admission, the patient was started on cefepime and Vanco. Surgery was consulted. The patient underwent a right axillary lymphadenectomy with drainage of abscess. The wound was left packed. Wound cultures came back positive for MRSA. Blood cultures were negative. Coronavirus negative. A1c was 10.0. The patient was advised to follow a strict diabetic diet. He will discharge home and follow up with surgery as discussed. He will also follow up with primary care in 1 to 2 weeks. He was given a new prescription for Tylenol 3 for pain and prescription for Levaquin and clindamycin per surgery recommendation. The patient understands discharge instructions and agrees to plan. Vital signs stable. Patient afebrile. Dictated by Silke Rowe NP MD YULIET Mohamud/MODAdelfo /[id number]
== END 2020-05-06 16:25 | disposition home or self-care (01) | DRG 581 ==
LOC: ER 13:47 → ERHOLD 14:26 → MED/SURG3 17:23
PROVIDERS: ADMIT Internal Medicine; ATTEND Internal Medicine
PROC: 07B50ZX Excision of Right Axillary Lymphatic, Open Approach, Diagnostic (ICD-10-PCS; principal; 2020-05-03)
DX: L02.411 Cutaneous abscess of right axilla (principal); N63.0 Unspecified lump in unspecified breast; R59.0 Localized enlarged lymph nodes; E11.9 Type 2 diabetes mellitus without complications; I10 Essential (primary) hypertension
CPT/HCPCS: 36415; 71045; 80053; 82550; 82553; 82948; 83036; 84443; 84484; 85025; 85610; 85730; 87040; 87071; 87075; 87186; 87205; 88304; 93005; 97139; 99285; J1100; J2001; J2270; J2405; J3370; J7030; U0002

== ENCOUNTER → 2020-06-22 | Outpatient (CLI) | payer OTHER ==
[~2020-06-22] MED LIST changes: +CEFTIN PO; +CLINDAMYCIN HC150 MG PO; +CLOPIDOGREL75 MG PO; +GABAPENTIN300 MG PO; +GADOBENATE DIMEGLUMINE 1 ML IV ONE; +IOPAMIDOL 300 MG/ML 15ML VIAL IT ONE; +JARDIANCE25 MG PO; +LEVAQUIN500 MG PO; +LIDOCAINE HCL 1% LOCAL INJ 20 ML VIAL ONE; +LOSARTAN POTASS25 MG PO; +OZEMPIC1 MG/0.75 SC; +SERTRALINE HCL50 MG PO; +TYLENOL # 31 EA PO
--- NOTE | 2020-06-22 09:41 | Diagnostic Imaging Report ---
Left shoulder arthrogram. Clinical History: Left shoulder pain Sedation: None. Fluoroscopy Time: 0.8 min. Reference Air Kerma (Ka, r): 4.11 mGy. Technique: Informed written consent was obtained. Discussion of risks, benefits, and alternatives were made with the patient. The patient expressed understanding and agreed to proceed. A universal timeout was performed prior to starting the procedure. All elements maximal sterile barrier technique was utilized for this procedure, including utilization of sterile scrub solution for skin prep, a large sterile sheet to cover the areas of the patient that were not prepped, and hand hygiene, mask, head covering, and sterile gown for performing radiologist and scrub technologist. 1% lidocaine was used for local anesthesia. Under fluoroscopic guidance, a 22-gauge spinal needle was advanced into the left shoulder joint. Approximately 12 cc of a mixture of gadolinium, Isovue 300, and normal saline was instilled into the joint. The needle was removed and sterile dressing applied. The patient tolerated the procedure well without immediate complication and was transferred to the MRI department in stable condition. Impression: Successful fluoroscopic guided left shoulder arthrogram. Please refer to separate MRI dictation for further details. Signed by: Dr. Allan Lion MD on 06/22/2020 9:37 AM
--- NOTE | 2020-06-22 10:15 | Diagnostic Imaging Report ---
TECHNIQUE: Magnetic resonance arthrogram of the left shoulder was performed after intra-articular injected contrast. COMPARISON: None available. HISTORY: Shoulder pain FINDINGS: MUSCLES AND TENDONS: Rotator Cuff: Tendons: Small full-thickness tear of the anterior supraspinatus tendon from the humeral insertion best seen on coronal image 9 series 4 and axial image 12 series 2. Additional interstitial tearing present. Muscles: No focal muscle atrophy. Biceps Tendon: The long head of the biceps tendon is intact and within the intertubercular groove. GLENOHUMERAL JOINT: Glenoid Labrum: No displaced tear. Articular Cartilage: No focal defect. AC JOINT AND ACROMION: Mild hypertrophic degenerative changes of the acromioclavicular joint. The acromion is unremarkable. BONE: No acute fracture. SOFT TISSUES: Contrast extends into the subacromial subdeltoid bursa through the rotator cuff tear. IMPRESSION: Supraspinatus full-thickness tear involving the anterior fibers. No muscle atrophy. Intact labrum. Signed by: Dr. Tor Bai M.D. on 06/22/2020 10:11 AM
== END ==
LOC: DX 07:43
PROVIDERS: ATTEND Specialist
DX: S43.432A Superior glenoid labrum lesion of left shoulder, initial encounter (principal); M75.102 Unspecified rotator cuff tear or rupture of left shoulder, not specified as traumatic
CPT/HCPCS: 23350; 73222; 77002; A9577; Q9967; J2001

== ENCOUNTER 2021-01-09 09:59 | Emergency (ER) | payer BC, OTHER ==
[~2021-01-09] VITALS: Ht 170.2 cm; Wt 85.7 kg
[~2021-01-09 09:59] MED LIST changes: -GADOBENATE DIMEGLUMINE 1 ML IV ONE; -IOPAMIDOL 300 MG/ML 15ML VIAL IT ONE; -LIDOCAINE HCL 1% LOCAL INJ 20 ML VIAL ONE
[2021-01-09 11:26] LABS: BASOPHILS % 0.3 % (0.0-1.0); EOSINOPHILS # (AUTO) 0.1 (0.0-0.4); EOSINOPHILS % 1.7 % (0.0-6.0); HEMATOCRIT 44.4 % (38.2-49.6); HEMOGLOBIN 14.9 g/dL (14.0-18.0); LYMPHOCYTES # (AUTO) 1.7 (1.0-3.2); LYMPHOCYTES % 23.8 % (18.0-39.1); MEAN CORPUSCULAR HEMOGLOBIN 31.5 pg (28-32); MEAN CORPUSCULAR HGB CONC 33.6 g/dL (31-35); MEAN CORPUSCULAR VOLUME 93.9 fL (81-99); MONOCYTES # (AUTO) 0.4 (0.2-0.8); MONOCYTES % 5.3 % (4.4-11.3); NEUTROPHILS # (AUTO) 4.8 (2.1-6.9); NEUTROPHILS % 68.6 % (38.7-80.0); PLATELET COUNT 246 x10e3/uL (140-360); RED BLOOD COUNT 4.73 x10e6/uL (4.3-5.7); RED CELL DISTRIBUTION WIDTH 12.7 % (11.7-14.4)
[2021-01-09 11:35] LABS: CLARITY,URINE CLEAR (CLEAR); COLOR,URINE YELLOW (YELLOW); LEUKOCYTE ESTERASE ,URINE NEGATIVE (NEGATIVE); NITRITE,URINE NEGATIVE (NEGATIVE); PROTEIN,URINE DIPSTICK 2+ (NEGATIVE)
[2021-01-09 11:36] LABS: KETONES,URINE NEGATIVE (NEGATIVE); URINE UROBILINOGEN 0.2 mg/dL (0.2 - 1)
[2021-01-09 11:46] LABS: INR 0.82; PROTHROMBIN TIME 11.9 seconds (11.9-14.5)
[2021-01-09 11:47] LABS: ALANINE AMINOTRANSFERASE 14 IU/L (0-55); ALBUMIN 3.5 g/dL (3.5-5.0); ALKALINE PHOSPHATASE 87 IU/L (40-150); ANION GAP 15.1 mmol/L (8-16); BLOOD UREA NITROGEN 18 mg/dL (7-26); BUN/CREATININE RATIO 17 (6-25); CALCIUM 9.1 mg/dL (8.4-10.2); CARBON DIOXIDE 23 mmol/L (22-29); CHLORIDE 105 mmol/L (98-107); CREATINE KINASE 66 IU/L (30-200); CREATININE, SERUM 1.05 mg/dL (0.72-1.25); EST GLOMERULAR FILTRATION RATE > 60 ML/MIN (60-); GLUCOSE 279 mg/dL (74-118); PARTIAL THROMBOPLASTIN TIME 30.4 seconds (23.8-35.5); POTASSIUM 4.1 mmol/L (3.5-5.1); SODIUM 139 mmol/L (136-145)
[2021-01-09 11:59] LABS: BACTERIA,URINE RARE /HPF; EPITHELIAL CELLS,URINE RARE /LPF; WBC,URINE (MAN) 0-5 /HPF (0-5)
[2021-01-09 14:33] VITALS: BP 142/93
== END 2021-01-09 14:35 | disposition home or self-care (01) ==
LOC: ER 10:45
DX: R20.2 Paresthesia of skin (principal); I10 Essential (primary) hypertension; E11.65 Type 2 diabetes mellitus with hyperglycemia; E78.5 Hyperlipidemia, unspecified; I25.10 Atherosclerotic heart disease of native coronary artery without angina pectoris; Z86.73 Personal history of transient ischemic attack (TIA), and cerebral infarction without residual deficits; I25.2 Old myocardial infarction; R94.31 Abnormal electrocardiogram [ECG] [EKG]
CPT/HCPCS: 36415; 70450; 71045; 80053; 81001; 82550; 82553; 83735; 84484; 85025; 85610; 85730; 93005; 99284

== ENCOUNTER 2021-03-18 14:15 | Emergency (ER) | payer BC, OTHER ==
[~2021-03-18] VITALS: Ht 170.2 cm; Wt 85.7 kg
== END 2021-03-18 16:02 | disposition home or self-care (01) ==
LOC: ER 15:01
DX: M62.838 Other muscle spasm (principal)
CPT/HCPCS: 99282